=== PATIENT | female | born 1980 | race Caucasian/White ===

== ENCOUNTER 2024-10-31 08:44 | Outpatient (AMB) | payer OTHER, SELFPAY ==
--- NOTE | 2024-10-31 08:47 | A.OFFPC_ITS ---
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 Specialist Required: No Is last menstrual period known: Yes Last menstrual period: 10/16/24 Post menopausal: No Patient : No Allergies No Known Allergies Allergy (Verified 10/31/24 09:05) Medication List - Last Reconciled 10/31/24 by Jacek Bonilla CNP levocetirizine 5 mg PO DAILY Tobacco use date assessed: 10/31/24 Dental Screening Dental Screen Date: 10/31/24 Did you have a dental visit in the last 12 months?: Yes Did you have a dental problem in the last 6 months where you did not have access to dental care?: No Was dental information given to patient?: Patient has dentist HPI HPI Comments History of Present Illness Details 44-year-old female presents to establish care. Prior PCP? - Dr. Odilon Ruiz, [facility] Last office visit/CPE/labs - 10/2023 Acute issue(s) - Environmental allergies: She is on lev ocetirizine 5 mg daily and gets allergy injection from her seed and fertilizer specialist every 3 weeks. - Seasonal depression in the winter. She feels unmotivated to do things. - Anxiety. She has intermittent anxiety about certain things and situations. - She notes that anxiety and depressive symptoms have not disrupt her functionality. She has never been diagnosed with anxiety or depression and never been on psychotropic medication or had psychotherapy. She is not interested in psychotherapy or pharmacotherapy at this time. Past Medical History - Environmental allergies Surgical History - Cholecystectomy Family History - Dad: Diabetes, hypertension, hyperlip idemia - Mom: Diabetes, hypertension, hyperlip idemia, thyroid cancer, thyroid disorder Social History - Nonsmoker. Does not vape. Does not dri nk alcohol. Denies recreational drug use - Has been making healthy dietary choice s, including low salt. Exercises routinely. Generally sleep well Health maintenance - Last eye exam was in 04/2023 with Maria T handy. She will call and make an appointment for an eye exam. She will sign a consent for her PCP to obtain her ophthalmology record - Last dental visit was in 10/2023; william raged to schedule an appointment with his dentist for routine dental care - Last tetanus vaccine was more than 10 years ago; received Tdap vaccine today - Has not been vaccinated for the flu ; declines vaccination - Last pap smear test was about 3 years ago. Declines referral for pap smear test at this time - She has never had a mammogram. 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 1. Little interest or pleasure in doing things: several days 2. Feeling down, depressed, or hopeless: several days 3. Trouble falling or staying asleep, or sleeping too much: several days 4. Feeling tired or having little energy: several days 5. Poor appetite or overeating: several days 6. Feeling bad about yourself - or that you are a failure or have let yourself or your family down: more than half the days 7. Trouble concentrating on things, such as reading the newspaper or watching television: more than half the days 8. Moving or speaking so slowly that other people could have noticed. Or the opposite - being so fidgety or restless that you have been moving around a lot more than usual: not at all 9. Thoughts that you would be better off or of hurting yourself in some way: not at all Total score: 9 Depression Screening Interpretation: Positive Depression Screening Follow-up: Declines treatment Depression Screening Done: Yes [id number] - PHQ-9 Billing: Yes Source: Developed by Drs. Kwesi Zavala, Mikey Espinoza and colleagues, with an educational luna from [employer]. Thrive Questionnaire Date Thrive assessed: 10/31/24 I am a: Patient What is your living situation today?: I have a steady place to live Within the past 12 months, did the food you bought not last and you didn't have the money to get more?: Often true Within the past 12 months, did you worry whether your food would run out before you got money to buy more?: Sometimes True Do you have trouble paying for medicines?: No Do you have trouble getting transportation to medical appointments?: No Do you have trouble paying your heating and electricity bill?: No Do you have trouble taking care of your child, family member or friend?: No Do you have trouble with day-to-day activities such as bathing, preparing meals, shopping, managing finances, etc.?: No Are you currently unemployed and looking for a job?: No Are you interested in more education?: No Please select the resources that you would like help with: None Currently or been in a relationship where the following occur: No concerns reported THRIVE Score: 2 AUDIT C Alcohol Use Questionnaire (AUDIT-C) 1. How often do you have a drink containing alcohol?: Never 3. How often do you have six or more drinks on one occasion?: Never Total Score: 0 HEMA-7 AMB Questionnaire HEMA-7 Date HEMA - 7 assessed: 10/31/24 Feeling nervous, anxious, or on edge: 1 = Several days Not being able to stop or control worryin = Not at all Worrying too much about different things: 1 = Several days Trouble relaxin = Not at all Being so restless that it is hard to sit still: 0 = Not at all Becoming easily annoyed or irritable: 1 = Several days Feeling afraid as if something awful might happen: 1 = Several days Total HEMA-7 score (0-4 normal; 5-9 mild; 10-14 moderate; 15-21 severe): 4 Source: Developed by Drs. Kwesi Zavala, Meredith Celestin, Mikey Magallanes and colleagues, with an educational luna from [employer]. HEMA-7 Assessment Billing HEMA-7 Assessment Tool: HEMA-7 Assessment 22137 Review of Systems Const Details: Denies chills, Denies fatigue, Denies fever(s), Denies headache(s) and Denies weakness HEENT Denies change in vision, Denies dizziness, Denies headache(s), Denies hearing loss, Denies nasal congestion, Denies sinus pain, Denies sinus pressure and Denies sore throat Card Denies chest pain, Denies lightheadedness, Denies dyspnea and Denies other (palpitations) Resp Denies cough, Denies dyspnea and Denies wheezing GI Denies abdominal pain, Denies melena, Denies hematochezia, Denies change in bowel habits, Denies dyspepsia and Denies nausea Denies hematuria and Denies dysuria Musc Denies abnormal gait, Denies myalgias, Denies arthralgias, Denies numbness and Denies tingling Skin/Breast Denies rash, Denies unusual bruising and Denies wounds Neuro Denies abnormal gait, Denies dizziness, Denies headache(s), Denies memory loss, Denies numbness, Denies Sensory deficit (Neuro), Denies tingling and Denies weakness Psych Denies anxiety, Denies depression and Denies memory loss Endo Denies cold intolerance, Denies fatigue, Denies heat intolerance, Denies polydipsia and Denies polyuria Corey/Lymph Denies easy bleeding and Denies easy bruising Aller/Immun Denies wheezing Physical exam (Primary Care) Vital Signs: Last Vital Signs Temp 98.8 F 10/31/24 08:55 Pulse 100 10/31/24 09:14 Resp 16 10/31/24 08:55 BP 140/90 H 10/31/24 09:14 Pulse Ox 97 10/31/24 08:55 Oxygen Delivery Method Room Air 10/31/24 08:55 BMI result Body Mass Index 41.9 Tobacco/Smoking Status: Tobacco use Status Tobacco use date assessed 10/31/24 10/31/24 08:55 Patient Tobacco Use Status Never used Tobacco 10/31/24 08:55 e-Cigarette/Vaping Use Never Used 10/31/24 08:55 PHQ-9: PHQ-9 Score PHQ-9: Total score 9 10/31/24 09:52 Depression Screening Interpretation: Positive Depression Screening Follow-up: Declines treatment Thrive Assessment: Date of Thrive Assessment Date Thrive assessed 10/31/24 10/31/24 09:03 Currently or been in a relationship where the following occur: No concerns reported Const Other: General: no acute distress, well developed, alert and awake Nutritional Appearance: well nourished Orientation/consciousness: patient oriented x3 [facility] Head: Yes normocephalic and Yes atraumatic Ears: hearing grossly normal bilaterally and TM's normal bilaterally General nose exam: Normal external nose present and Normal nares present Mouth: Normal oral and palatal mucosa present and moist mucous membranes Teeth and gingiva: dentition normal Throat: Yes oropharynx normal Eyes Pupils: Equal, round and reactive pupils present and Pupil accommodation reflex normal EOM: EOMs intact bilaterally Neck Neck: Yes normal visual inspection, Yes no lymphadenopathy and Yes trachea midline Thyroid: Thyroid normal Carotids: no bruits Lymphatic: no lymphadenopathy noted Chest Chest palpation & inspection: normal inspection of the chest Resp Effort & Inspection: normal respiratory effort Auscultation: clear to auscultation bilaterally Cardio Rate: regular rate Rhythm: regular rhythm Heart sounds: S1 normal heart sound present, S2 normal heart sound present, no gallops, no murmurs and no rubs Bruits: no abdominal aortic bruits and no carotid bruits GI Palpation (GI): No Abdominal aortic bruit present, Soft to palpation, nontender, No hepatosplenomegaly present and No Rebound tenderness present Auscultation: normal bowel sounds General: Yes no CVA tenderness Back/Spine/Pelvis Back: no CVA tenderness Cervical Spine: cervical ROM normal and No Cervical spine tenderness Thoracic/Lumbar Spine: thoraco-lumbar ROM normal, No pain with thoraco-lumbar ROM, No thoracic spinal tenderness and No lumbar spinal tenderness Skin General: warm and dry. Normal skin color. Normal skin turgor Lesions: no lesions Rashes: no rashes Trauma: no lacerations or abrasions Wounds: no wounds Nails: normal Neuro General: patient oriented x3, gait normal and CN's II-XI intact bilaterally Cranial nerves: Yes Equal, round and reactive pupils present Cognition (Neuro): normal cognition Gait exam (Neuro): Normal gait present Motor exam (neuro): 5/5 motor strength present throughout Sensory Exam: No Sensory deficit (Neuro) Deep tendon reflexes (DTR's): Right patellar reflex intensity grade: 2+ and Left patellar reflex intensity grade: 2+ Extrem General: Yes normal to inspection, No edema and No calf tenderness Psych Appearance: grossly normal Affect: normal affect Attitude: cooperative Thought process: Normal thought process present Immunizations Boostrix Tdap 2.5 Lf unit-8 mcg-5 Lf/0.5 mL intramuscular syringe Performing Provider: Jacek Bonilla CNP Performing Location: [facility] Administered by: Vince Fuentes RN on 10/31/24 09:47 Dose Route Admin Location Dispensed Lot Number Expiration Date [facility] Education Counselor 0.5 mL IM Right Deltoid 0.5 mL [id number] 12/01/26 39074-841-76 [employer] VIS Given Date VIS Provided VIS Publication Date 10/31/24 Single Vaccine 21 Eligibility Eligibility Date Funding Source Not [facility] Eligible 10/31/24 Private Coding Level of Care Code New Pt Prev Care 40-64y(22783) Diagnoses Normal physical examination, routine Z00.00 Environmental allergies Z91.09 Seasonal depression F33.8 Anxiety F41.9 Breast cancer screening by mammogram Z12.31 Pap smear for cervical cancer screening Z12.4 Morbid obesity with BMI of 40.0-44.9, adult E66.01; Z68.41 Laboratory tests ordered as part of a complete physical exam (CPE) Z00.00 Additional Codes HEMA-7 Assessment Billing - HEMA-7 Assessment Tool: HEMA-7 Assessment 66439 ([id number]) PHQ-9 - 64620 - PHQ-9 Billing: Yes ([id number]) Assessment & Plan Assessment & Plan (1) Normal physical examination, routine: Code(s): Z00.00 - Encounter for general adult medical examination without abnormal findings Category: Medical Plan: No significant functional limitations noted. Advised to perform lab work and follow-up for labs review and elevated blood pressure in 2-3 weeks. Return sooner with symptoms or concerns. Verbalized understanding and agreed with treatment plan. (2) Environmental allergies: Code(s): Z91.09 - Other allergy status, other than to drugs and biological substances Category: Medical Plan: She is on levocetirizine 5 mg daily and gets allergy injection from her seed and fertilizer specialist every 3 weeks. Continue current treatment regimen. (3) Seasonal depression: Code(s): F33.8 - Other recurrent depressive disorders Category: Medical Plan: She experiences seasonal depression in the winter and feels unmotivated to do things. She also experiences intermittent anxiety about certain things and situ ations. Her anxiety and depressive symptoms have not disrupt her functionality. She has never been diagnosed with anxiety or depression and never been on psychotropic medication or had psychotherapy. She is not interested in psychotherapy or pharmacotherapy at this time. PHQ-9 score reveals mild depression. HEMA-7 score is normal. Healthy diet and routine exercise encouraged. Follow-up with worsening or new symptoms. Verbalized understanding and agreed with treatment plan. (4) Anxiety: Code(s): F41.9 - Anxiety disorder, unspecified Category: Medical Plan: Plan as above. (5) Breast cancer screening by mammogram: Code(s): Z12.31 - Encounter for screening mammogram for malignant neoplasm of breast Category: Medical Plan: She has never had a mammogram. Mammogram ordered. (6) Pap smear for cervical cancer screening: Code(s): Z12.4 - Encounter for screening for malignant neoplasm of cervix Category: Medical Plan: Last pap smear test was about 3 years ago. Declines referral for pap smear test at this time. Follow-up as needed. Verbalized understanding and agreed with the plan. (7) Morbid obesity with BMI of 40.0-44.9, adult: Code(s): E66.01 - Morbid (severe) obesity due to excess calories; Z68.41 - Body mass index [BMI] 40.0-44.9, adult Category: Medical Plan: She currently weighs 229 lb, BMI is 41.9. She has been making healthy dietary choices and exercising routinely, which I encouraged. Referred to weight management clinic as requested. Follow-up as needed. Verbalized understanding and agreed with treatment plan. (8) Laboratory tests ordered as part of a complete physical exam (CPE): Code(s): Z00.00 - Encounter for general adult medical examination without abnormal findings Category: Medical Plan: Fasting labs ordered as part of a complete physical exam. Advised to fast for at least 10 hours before getting labs drawn. May drink water Verbalized understanding and agreed with treatment plan. Orders: Orders TDaP Immunization Today Z23 - Encounter for immunization Complete Blood Count Auto Diff Today Z00.00 - Encounter for general adult medical examination without abnormal findings Comprehensive [place]. Panel Fast Today Z00.00 - Encounter for general adult medical examination without abnormal findings Lipid Panel Today Z00.00 - Encounter for general adult medical examination without abnormal findings Microalbumin, Random (w Creat) Today Z00.00 - Encounter for general adult medical examination without abnormal findings UA CC w/rflx Micro + Cult Today Z00.00 - Encounter for general adult medical examination without abnormal findings TSH reflex Free T4 Today Z00.00 - Encounter for general adult medical examination without abnormal findings Vitamin D 25-OH Total Today Z00.00 - Encounter for general adult medical examination without abnormal findings MM screening mammo BI Today Z12.31 - Encounter for screening mammogram for malignant neoplasm of breast Referrals Medical Weight Management Referral E66.01 - Morbid (severe) obesity due to excess calories, Z68.41 - Body mass index [BMI] 40.0-44.9, adult
[2024-10-31 08:55] VITALS: BP 141/84; PULSE 96; RESP 16; TEMP 37.1; O2SAT 97; BMI 41.9
[2024-10-31 09:14] VITALS: BP 140/90; PULSE 100
== END 2024-10-31 09:57 | disposition home or self-care (01) ==
LOC: HO.HMCFM 08:44
PROVIDERS: PCP Nurse Practitioner Family; Visit Provider Nurse Practitioner Family
DX: Z00.00 Encounter for general adult medical examination without abnormal findings (principal); F33.8 Other recurrent depressive disorders; E66.01 Morbid (severe) obesity due to excess calories; Z68.41 Body mass index [BMI] 40.0-44.9, adult; Z91.09 Other allergy status, other than to drugs and biological substances; F41.9 Anxiety disorder, unspecified; Z12.31 Encounter for screening mammogram for malignant neoplasm of breast; Z23 Encounter for immunization

== ENCOUNTER 2024-10-31 09:47 | Outpatient (REF) | payer OTHER, SELFPAY ==
[2024-10-31 11:23] LABS: MANUAL DIFF FLAG NO
[2024-10-31 11:32] LABS: Basophils Absolute Auto 0.1 X10*3/uL (0.0-0.2); Basophils Percent Auto 0.6 % (0-2); Eosinophils Absolute Auto 0.2 X10*3/uL (0.0-0.4); Eosinophils Percent Auto 1.7 % (0-4); Hematocrit 40.1 % (37.0-47.0); Hemoglobin 13.1 g/dl (12.0-16.0); Imm Gran Abs Auto 0.03 X10*3/uL (0.00-0.03); Imm Gran Pct Auto 0.3 % (0.0-0.4); Lymphocytes Percent Auto 44.9 % (20-40); Mean Corpuscular HGB Conc 32.7 g/dl (31.0-35.0); Mean Corpuscular Hemoglobin 29.2 pg (27.0-33.0); Mean Corpuscular Volume 89.5 fL (80.0-98.0); Mean Platelet Volume 9.3 fL (9.4-12.3); Monocytes Absolute Auto 0.5 X10*3/uL (0.1-1.2); Monocytes Percent Auto 5.5 % (2-11); Neutrophils Absolute Auto 4.2 x10*3/uL (2.0-8.3); Platelet Count 448 X10*3/uL (160-400); Red Blood Count 4.48 X10*6/uL (4.20-5.50); Red Cell Distribution Width 13.5 % (11.0-16.0); White Blood Count 8.9 X10*3/uL (4.8-10.8)
[2024-10-31 11:40] LABS: Appearance Urine Clear; Color Urine Yellow; Glucose Urine UA Negative (Negative); Leukocyte Esterase Urine Negative (Negative); Nitrite Urine Negative (Negative); PH 5.5 (5.0-9.0); Specific Gravity - Urine >= 1.030 (1.005-1.025); UMIC TRIGGER UACC YES; Urine Blood Trace (Negative); Urine Ketones Trace mg/dL (Negative); Urine Protein Trace mg/dL (Neg-Trace)
[2024-10-31 11:45] LABS: Bacteria Urine None Seen (None Seen); Hyaline Casts Urine 0-2 /LPF (0-2); WBC Urine 0-5 /HPF (0-5)
[2024-10-31 12:02] LABS: Alanine Aminotransferase 38 U/L (0-31); Alkaline Phosphatase 90 U/L (39-117); Anion Gap 10 (12-20); Aspartate Amino Transferase 34 U/L (5-31); Bilirubin Total 0.3 mg/dL (0.0-1.0); Blood Urea Nitrogen 9 mg/dL (9-16); Calcium 8.9 mg/dL (8.4-10.2); Carbon Dioxide 24 mmol/L (22-29); Chloride 110 mmol/L (96-108); Cholesterol 237 mg/dL (<200); Estimated Glomerular Filt Rate > 60; Glucose Fasting 120 mg/dL (60-99); HDL Cholesterol 67 mg/dL (>40); LDL Cholesterol Calculated 144 mg/dL (<100); Potassium 3.9 mmol/L (3.3-5.1); Sodium 140 mmol/L (135-145); Total Protein 7.5 g/dL (6.5-8.0); Triglycerides 132 mg/dL (<150)
[2024-10-31 12:06] LABS: TSH reflex Free T4 1.67 uIU/mL (0.32-4.0); Vitamin D 25-OH Total 81.5 ng/mL (>30)
[2024-10-31 12:10] LABS: Microalbum/Creatinine Ratio Ur 12.5 ug/mg cr (<30)
== END 2024-10-31 09:48 | disposition home or self-care (01) ==
LOC: HO.WFDLDS 09:47
PROVIDERS: Visit Provider Nurse Practitioner Family
DX: Z00.00 Encounter for general adult medical examination without abnormal findings (principal); Z23 Encounter for immunization; F33.8 Other recurrent depressive disorders; F41.9 Anxiety disorder, unspecified; E66.01 Morbid (severe) obesity due to excess calories; Z68.41 Body mass index [BMI] 40.0-44.9, adult; Z79.899 Other long term (current) drug therapy; Z91.09 Other allergy status, other than to drugs and biological substances
CPT/HCPCS: 36415; 80053; 80061; 81001; 82043; 82306; 82570; 84443; 85025; 90471; 90715; 96127; 99386

== ENCOUNTER 2024-11-26 11:48 | Outpatient (AMB) | payer OTHER, SELFPAY ==
--- NOTE | 2024-11-26 11:53 | A.OFFPC_ITS ---
Vital Signs 11/26/24 11:56 Height 5 ft 2 in Weight 229 lb 8 oz BMI 42.0 BP 130/88 Blood Pressure Location Rt brachial Position Sitting Respiration 16 Pulse 113 H Pulse Source Pulse Oximeter Temp 98.7 F Temp Source Oral Pulse Oximetry (%) 98 Oxygen Delivery Method Room Air Intake Visit Reasons: 2-3 wks labs elevated BP and labs review Intake Note: patient here for 2-3 wks follow up on BP and lab review Medication Manager Required: No Is last menstrual period known: Yes Last menstrual period: 11/14/24 Post menopausal: No Patient : No Allergies No Known Allergies Allergy (Verified 11/26/24 12:20) Medication List - Last Reconciled 11/26/24 by Jacek Bonilla CNP levocetirizine 5 mg PO DAILY Tobacco use date assessed: 11/26/24 Dental Screening Dental Screen Date: 11/26/24 Did you have a dental visit in the last 12 months?: Yes Did you have a dental problem in the last 6 months where you did not have access to dental care?: No Was dental information given to patient?: Patient has dentist HPI HPI Comments History of Present Illness Details 44-year-old female presents for elevated BP without diagnosis of hypertension and review of recent lab results follow-up. She notes that she recently started making healthy dietary choices. She is active but does not exercise. She offers no complaints and denies acute symptoms at this time. 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 1. Little interest or pleasure in doing things: several days 2. Feeling down, depressed, or hopeless: not at all 3. Trouble falling or staying asleep, or sleeping too much: not at all 4. Feeling tired or having little energy: several days 5. Poor appetite or overeating: several days 6. Feeling bad about yourself - or that you are a failure or have let yourself or your family down: several days 7. Trouble concentrating on things, such as reading the newspaper or watching television: several days 8. Moving or speaking so slowly that other people could have noticed. Or the opposite - being so fidgety or restless that you have been moving around a lot more than usual: several days 9. Thoughts that you would be better off or of hurting yourself in some way: not at all Total score: 6 Depression Screening Interpretation: Positive Depression Screening Follow-up: Existing condition Depression Screening Done: Yes Source: Developed by Drs. Kwesi Zavala, Meredith Celestin, Mikey Magallanes and colleagues, with an educational luna from [employer]. Thrive Questionnaire Date Thrive assessed: 10/31/24 I am a: Patient What is your living situation today?: I have a steady place to live Within the past 12 months, did the food you bought not last and you didn't have the money to get more?: I choose not to answer this question Within the past 12 months, did you worry whether your food would run out before you got money to buy more?: I choose not to answer this question Do you have trouble paying for medicines?: I choose not to answer this question Do you have trouble getting transportation to medical appointments?: I choose not to answer this question Do you have trouble paying your heating and electricity bill?: I choose not to answer this question Do you have trouble taking care of your child, family member or friend?: I choose not to answer this question Do you have trouble with day-to-day activities such as bathing, preparing meals, shopping, managing finances, etc.?: I choose not to answer this question Are you currently unemployed and looking for a job?: I choose not to answer this question Are you interested in more education?: I choose not to answer this question Please select the resources that you would like help with: None Currently or been in a relationship where the following occur: I choose not to answer THRIVE Score: 0 AUDIT C Alcohol Use Questionnaire (AUDIT-C) 1. How often do you have a drink containing alcohol?: Never Total Score: 0 HEMA-7 AMB Questionnaire HEMA-7 Date HEMA - 7 assessed: 10/31/24 Feeling nervous, anxious, or on edge: 0 = Not at all Not being able to stop or control worryin = Not at all Worrying too much about different things: 0 = Not at all Trouble relaxin = Not at all Being so restless that it is hard to sit still: 0 = Not at all Becoming easily annoyed or irritable: 0 = Not at all Feeling afraid as if something awful might happen: 0 = Not at all Total HEMA-7 score (0-4 normal; 5-9 mild; 10-14 moderate; 15-21 severe): 0 Source: Developed by Drs. Kwesi Zavala, Meredith Celestin, Mikey Magallanes and colleagues, with an educational luna from [employer]. Review of Systems Const Details: Const Denies chills, Denies fatigue, Denies fever(s), Denies headache(s) and Denies weakness ENT Denies dizziness and Denies headache(s) Card Denies chest pain, Denies lightheadedness, Denies dyspnea and Denies other (Palpitations) Resp Denies cough, Denies dyspnea, Denies wheezing and Denies other ( shortness of breath) GI Denies abdominal pain, Denies melena, Denies hematochezia, Denies change in bowel habits, Denies dyspepsia and Denies nausea Denies hematuria and Denies dysuria Musc Denies abnormal gait, Denies myalgias, Denies arthralgias, Denies numbness and Denies tingling Skin/Breast Denies rash, Denies unusual bruising and Denies wounds Neuro Denies abnormal gait, Denies dizziness, Denies headache(s), Denies memory loss, Denies numbness, Denies Sensory deficit (Neuro), Denies tingling and Denies weakness Psych Denies anxiety, Denies depression, Denies memory loss Endo Denies cold intolerance, Denies fatigue, Denies heat intolerance, Denies polydipsia and Denies polyuria Aller/Immun Denies wheezing Physical exam (Primary Care) Vital Signs: Last Vital Signs Temp 98.7 F 11/26/24 11:56 Pulse 113 H 11/26/24 11:56 Resp 16 11/26/24 11:56 BP 130/88 11/26/24 11:56 Pulse Ox 98 11/26/24 11:56 Oxygen Delivery Method Room Air 11/26/24 11:56 BMI result Body Mass Index 42.0 Tobacco/Smoking Status: Tobacco use Status Tobacco use date assessed 11/26/24 11/26/24 11:59 Patient Tobacco Use Status Never used Tobacco 11/26/24 11:54 e-Cigarette/Vaping Use Never Used 11/26/24 11:54 PHQ-9: PHQ-9 Score PHQ-9: Total score 6 11/26/24 13:00 Depression Screening Interpretation: Positive Depression Screening Follow-up: Existing condition Thrive Assessment: Date of Thrive Assessment Date Thrive assessed 10/31/24 11/26/24 11:54 Currently or been in a relationship where the following occur: I choose not to answer Const Other: General: no acute distress and well developed Nutritional Appearance: well nourished Orientation/consciousness: patient oriented x3 HENMT Head: Yes normocephalic and Yes atraumatic Eyes General: appearance normal, both eyes and all related structures Pupils: Equal, round and reactive pupils present EOM: EOMs intact bilaterally Resp Effort & Inspection: normal respiratory effort Auscultation: clear to auscultation bilaterally Cardio Rate: regular rate Rhythm: regular rhythm Heart sounds: S1 normal heart sound present, S2 normal heart sound present, no gallops, no murmurs and no rubs GI Palpation (GI): No Abdominal aortic bruit present, Soft to palpation, nontender, No hepatosplenomegaly present and No Rebound tenderness present Auscultation: normal bowel sounds General: Yes no CVA tenderness Back/Spine/Pelvis Back: no CVA tenderness Cervical Spine: cervical ROM normal and No Cervical spine tenderness Thoracic/Lumbar Spine: thoraco-lumbar ROM normal, No pain with thoraco-lumbar ROM, No thoracic spinal tenderness and No lumbar spinal tenderness Extrem General: Yes normal to inspection, No edema and No calf tenderness Skin General: warm and dry. Normal skin color. Normal skin turgor Neuro General: patient oriented x3, gait normal and no focal neuro deficit Cranial nerves: Yes Equal, round and reactive pupils present Cognition (Neuro): normal cognition Gait exam (Neuro): Normal gait present Sensory Exam: No Sensory deficit (Neuro) Psych Appearance: grossly normal Affect: normal affect Attitude: cooperative Thought process: Normal thought process present Results AMB Hemoglobin A1c AMB Hemoglobin A1c 5.9 % Last Edit by Debora Cantor MA on 11/26/24 13:00 Results Reviewed Results Reviewed: Laboratory Last Values Hgb A1c (Clinic) 5.9 % (4.0-6.0) 11/26/24 12:31 Coding Level of Care Code Est Pt Level 4 (33368) Diagnoses Hypercholesterolemia E78.00 Transaminitis R74.01 Thrombocytosis D75.839 Prediabetes R73.03 Assessment & Plan Assessment & Plan (1) Hypercholesterolemia: Code(s): E78.00 - Pure hypercholesterolemia, unspecified Category: Medical Plan: Recent total cholesterol and LDL levels are elevated, 237 and 144 respectively. She reports history of elevated total cholesterol and LDL in the past 3 years despite making healthy dietary choices and exercising. Advised to limit foods high in saturated fat and avoid foods high in trans fat. Routine exercise encouraged. Fast for 10-12 hours, may drink water, and perform lipid panel blood work before next visit. Follow-up for telehealth visit in two months. Return sooner with symptoms or concerns. Verbalized understanding and agreed with the plan. (2) Transaminitis: Code(s): R74.01 - Elevation of levels of liver transaminase levels Category: Medical Plan: Recent AST and ALT levels are slightly elevated, 34 and 38 respectively. Fatty liver deposit is likely. Routine exercise and healthy diet, including low-fat encouraged. Will recheck liver panel in 2 months. Verbalized understanding and agreed with the plan. (3) Thrombocytosis: Code(s): D75.839 - Thrombocytosis, unspecified Category: Medical Plan: Recent platelet level is slightly elevated, 448. Will recheck platelet levels and make changes as needed. Verbalized understanding and agreed with the plan. (4) Prediabetes: Code(s): R73.03 - Prediabetes Category: Medical Plan: Recent fasting glucose is elevated, 120. A1c today is 5.9%. Routine exercise and healthy diet, including low carbs encouraged. Will recheck A1c in 6 months. Verbalized understanding and agreed with the plan. Orders: Orders Lipid Panel 2 Months E78.00 - Pure hypercholesterolemia, unspecified AMB Hemoglobin A1c Today Z13.9 - Encounter for screening, unspecified Liver Panel 2 Months R74.01 - Elevation of levels of liver transaminase levels Platelet Count Today D75.839 - Thrombocytosis, unspecified
[2024-11-26 11:56] VITALS: BP 130/88; PULSE 113; RESP 16; TEMP 37.1; O2SAT 98; BMI 42.0
== END 2024-11-26 15:02 | disposition home or self-care (01) ==
PROVIDERS: PCP Nurse Practitioner Family; Visit Provider Nurse Practitioner Family
DX: E78.00 Pure hypercholesterolemia, unspecified (principal); R74.01 Elevation of levels of liver transaminase levels; D75.839 Thrombocytosis, unspecified; R73.03 Prediabetes; Z13.9 Encounter for screening, unspecified

== ENCOUNTER → 2024-11-26 11:48 | Outpatient (BNVA) | payer OTHER, SELFPAY | PROVIDERS: PCP Nurse Practitioner Family; Visit Provider Nurse Practitioner Family | DX: E78.00 Pure hypercholesterolemia, unspecified (principal); R74.01 Elevation of levels of liver transaminase levels; D75.839 Thrombocytosis, unspecified; R73.03 Prediabetes | CPT/HCPCS: 83036; 99212 ==

== ENCOUNTER 2025-01-02 08:06 | Outpatient (REF) | payer OTHER, SELFPAY | END 2025-01-02 08:07 | disposition home or self-care (01) | LOC: HO.MAMMO 08:06 | PROVIDERS: PCP Nurse Practitioner Family; Visit Provider Nurse Practitioner Family | DX: Z12.31 Encounter for screening mammogram for malignant neoplasm of breast (principal) | CPT/HCPCS: 77063; 77067 ==

== ENCOUNTER → 2025-01-02 08:15 | Outpatient (BNV) | payer OTHER, SELFPAY | PROVIDERS: PCP Nurse Practitioner Family; Visit Provider Internal Medicine | DX: Z12.31 Encounter for screening mammogram for malignant neoplasm of breast (principal) | CPT/HCPCS: 77063; 77067 ==

== ENCOUNTER 2025-02-18 09:50 | Outpatient (REF) | payer OTHER, SELFPAY ==
[2025-02-18 10:53] LABS: Platelet Count 419 X10*3/uL (160-400)
[2025-02-18 13:21] LABS: Alanine Aminotransferase 41 U/L (0-31); Albumin Level 4.1 g/dL (3.5-5.0); Alkaline Phosphatase 81 U/L (39-117); Aspartate Amino Transferase 37 U/L (5-31); Cholesterol 232 mg/dL (<200); HDL Cholesterol 56 mg/dL (>40); Total Protein 6.6 g/dL (6.5-8.0); Triglycerides 123 mg/dL (<150)
== END 2025-02-18 09:51 | disposition home or self-care (01) ==
LOC: HO.HMGCLDS 09:50
PROVIDERS: PCP Nurse Practitioner Family; Visit Provider Nurse Practitioner Family
DX: E78.00 Pure hypercholesterolemia, unspecified (principal); R74.01 Elevation of levels of liver transaminase levels; D75.839 Thrombocytosis, unspecified
CPT/HCPCS: 36415; 80061; 80076; 85049

== ENCOUNTER 2025-02-25 11:39 | Outpatient (AMB) | payer OTHER, SELFPAY ==
--- NOTE | 2025-02-25 11:42 | A.OFFPC_ITS ---
Vital Signs 02/25/25 11:47 Height 5 ft 2 in Weight 232 lb BMI 42.4 BP 137/81 Blood Pressure Location Lt brachial Position Sitting Respiration 16 Pulse 99 Pulse Source Pulse Oximeter Temp 98.3 F Temp Source Oral Pulse Oximetry (%) 99 Oxygen Delivery Method Room Air Intake Visit Reasons: hypercholesterolemia,transaminitis,thrombocytosis Intake Note: patient here for follow up on hypercholesterolemia, transaminitis, thrombocytosis Card Cutter Helper Required: No Is last menstrual period known: Yes Last menstrual period: 02/15/25 Post menopausal: No Patient : No Allergies No Known Allergies Allergy (Verified 02/25/25 12:14) Medication List - Last Reconciled 02/25/25 by aJcek Bonilla CNP levocetirizine 5 mg PO DAILY Tobacco use date assessed: 02/25/25 Dental Screening Dental Screen Date: 02/25/25 Did you have a dental visit in the last 12 months?: Yes Did you have a dental problem in the last 6 months where you did not have access to dental care?: No Was dental information given to patient?: Patient has dentist HPI HPI Comments History of Present Illness Details 44-year-old female presents for hypercho lesterolemia, transaminitis, and thrombocytopenia follow-up. She admits to making healthy dietary choices and exercising routinely. She has not been contacted by [facility] weight management clinic. She reports facial itchiness, redness, and swelling for the past 3 days. She used a new facial product the day prior to her s/s which have not improved. PO Xyzal and TONG Benadryl and hydrocortisone have not been effective. She request prednisone. She notes that her mother has h/o HLD. 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 Current occupational exposures/hazards: No Cognitive needs: No Hearing needs: No Vision needs: No Female Reproductive History Menstrual Date of last menstrual period: 02/15/25 Questionnaire Thrive Questionnaire Date Thrive assessed: 11/26/24 I am a: Patient What is your living situation today?: I have a steady place to live Within the past 12 months, did the food you bought not last and you didn't have the money to get more?: I choose not to answer this question Within the past 12 months, did you worry whether your food would run out before you got money to buy more?: I choose not to answer this question Do you have trouble paying for medicines?: I choose not to answer this question Do you have trouble getting transportation to medical appointments?: I choose not to answer this question Do you have trouble paying your heating and electricity bill?: I choose not to answer this question Do you have trouble taking care of your child, family member or friend?: I choose not to answer this question Do you have trouble with day-to-day activities such as bathing, preparing meals, shopping, managing finances, etc.?: I choose not to answer this question Are you currently unemployed and looking for a job?: I choose not to answer this question Are you interested in more education?: I choose not to answer this question Please select the resources that you would like help with: None Currently or been in a relationship where the following occur: I choose not to answer THRIVE Score: 0 HEMA-7 AMB Questionnaire HEMA-7 Date HEMA - 7 assessed: 10/31/24 Source: Developed by Drs. Kwesi Zavala, Meredith Celestin, Mikey Magallanes and colleagues, with an educational luna from [employer]. Review of Systems Const Details: Const Denies chills, Denies fatigue, Denies fever(s), Denies headache(s) and Denies weakness ENT Denies dizziness and Denies headache(s) Card Denies chest pain, Denies lightheadedness, Denies dyspnea and Denies other (Palpitations) Resp Denies cough, Denies dyspnea, Denies wheezing and Denies other ( shortness of breath) GI Denies abdominal pain, Denies melena, Denies hematochezia, Denies change in bowel habits, Denies dyspepsia and Denies nausea Denies hematuria and Denies dysuria Musc Denies abnormal gait, Denies myalgias, Denies arthralgias, Denies numbness and Denies tingling Skin/Breast Reports as per HPI Neuro Denies abnormal gait, Denies dizziness, Denies headache(s), Denies memory loss, Denies numbness, Denies Sensory deficit (Neuro), Denies tingling and Denies weakness Psych Denies anxiety, Denies depression, Denies memory loss Endo Denies cold intolerance, Denies fatigue, Denies heat intolerance, Denies polydipsia and Denies polyuria Aller/Immun Denies wheezing Physical exam (Primary Care) Vital Signs: Last Vital Signs Temp 98.3 F 02/25/25 11:47 Pulse 99 02/25/25 11:47 Resp 16 02/25/25 11:47 BP 137/81 02/25/25 11:47 Pulse Ox 99 02/25/25 11:47 Oxygen Delivery Method Room Air 02/25/25 11:47 BMI result Body Mass Index 42.4 Tobacco/Smoking Status: Tobacco use Status Tobacco use date assessed 02/25/25 02/25/25 11:50 Patient Tobacco Use Status Never used Tobacco 02/25/25 11:45 e-Cigarette/Vaping Use Never Used 02/25/25 11:45 Thrive Assessment: Date of Thrive Assessment Date Thrive assessed 11/26/24 02/25/25 11:45 Currently or been in a relationship where the following occur: I choose not to answer Const Other: General: no acute distress and well developed Nutritional Appearance: well nourished Orientation/consciousness: patient oriented x3 HENMT Head: Yes normocephalic and Yes atraumatic Eyes General: appearance normal, both eyes and all related structures Pupils: Equal, round and reactive pupils present EOM: EOMs intact bilaterally Resp Effort & Inspection: normal respiratory effort Auscultation: clear to auscultation bilaterally Cardio Rate: regular rate Rhythm: regular rhythm Heart sounds: S1 normal heart sound present, S2 normal heart sound present, no gallops, no murmurs and no rubs GI Palpation (GI): No Abdominal aortic bruit present, Soft to palpation, nontender, No hepatosplenomegaly present and No Rebound tenderness present Auscultation: normal bowel sounds General: Yes no CVA tenderness Back/Spine/Pelvis Back: no CVA tenderness Cervical Spine: cervical ROM normal and No Cervical spine tenderness Thoracic/Lumbar Spine: thoraco-lumbar ROM normal, No pain with thoraco-lumbar ROM, No thoracic spinal tenderness and No lumbar spinal tenderness Extrem General: Yes normal to inspection, No edema and No calf tenderness Skin General: warm and dry. Normal skin color. Normal skin turgor Moderate erythema and edema noted both cheeks Neuro General: patient oriented x3, gait normal and no focal neuro deficit Cranial nerves: Yes Equal, round and reactive pupils present Cognition (Neuro): normal cognition Gait exam (Neuro): Normal gait present Sensory Exam: No Sensory deficit (Neuro) Psych Appearance: grossly normal Affect: normal affect Attitude: cooperative Thought process: Normal thought process present Coding Level of Care Code Est Pt Level 4 (76795) Complex EM visit Add On G2211 Diagnoses Hypercholesterolemia E78.00 Transaminitis R74.01 Thrombocytosis D75.839 Allergic dermatitis L23.9 Assessment & Plan Assessment & Plan (1) Hypercholesterolemia: Code(s): E78.00 - Pure hypercholesterolemia, unspecified Category: Medical Plan: Recent total cholesterol and LDL levels are elevated, 232 and 152 respectively; previous levels were 237 and 144 respectively. Triglycerides and HDL levels are normal. Her mother has history of hyperlipidemia. May be hereditary or diet related. Declines medication treatment at this time and notes she will continue to make lifestyle changes. Advised to limit foods high in saturated fat and avoid foods high trans fat. Routine exercise encouraged. [facility] weight management clinic phone number given to patient; encouraged to contact them to schedule an appointment. Perform lipid panel blood work 2-3 days before next visit. Follow-up for telehealth visit in 2 months. Return sooner with symptoms or concerns. Verbalized understanding and agreed with the plan. (2) Transaminitis: Code(s): R74.01 - Elevation of levels of liver transaminase levels Category: Medical Plan: Recent AST and ALT levels are slightly elevated, 37 and 41 respectively; previous levels were 34 and 38 respectively. Likely fatty liver disease due to diet and obesity. No acute symptoms at this time. Weight management encouraged. Will monitor liver panel periodically or if presents with related symptoms or concerns. Verbalized understanding and agreed with the plan. (3) Thrombocytosis: Code(s): D75.839 - Thrombocytosis, unspecified Category: Medical Plan: Recent platelet level is slightly elevated, 419; previous level was 448. Equivocal. Referred to Hematology/oncologist for further workup. (4) Allergic dermatitis: Code(s): L23.9 - Allergic contact dermatitis, unspecified cause Category: Medical Plan: She reports facial itchiness, redness, and swelling for the past 3 days. She used a new facial product the day prior to her s/s which have not improved. PO Xyzal and TONG Benadryl and hydrocortisone have not been effective. She request prednisone. Moderate erythema and edema noted both cheeks. Prednisone 20 mg daily x5 days ordered; advised to take as prescribed; instructed on the risks, benefits, and potential adverse reactions of the medication. Encouraged to use skin products cautiously. Follow-up with worsening or new signs and symptoms. Verbalized understanding and agreed with the plan. Orders: Orders Lipid Panel 2 Months E78.00 - Pure hypercholesterolemia, unspecified Referrals Hematology & Oncology Referral D75.839 - Thrombocytosis, unspecified Medications: New prednisone 20 mg PO DAILY 5 tabs 0RF 5 days
[2025-02-25 11:47] VITALS: BP 137/81; PULSE 99; RESP 16; TEMP 36.8; O2SAT 99; BMI 42.4
== END 2025-02-25 12:31 | disposition home or self-care (01) ==
PROVIDERS: PCP Nurse Practitioner Family; Visit Provider Nurse Practitioner Family
DX: E78.00 Pure hypercholesterolemia, unspecified (principal); R74.01 Elevation of levels of liver transaminase levels; D75.839 Thrombocytosis, unspecified; L23.9 Allergic contact dermatitis, unspecified cause

== ENCOUNTER → 2025-02-25 11:39 | Outpatient (BNVA) | payer OTHER, SELFPAY | PROVIDERS: PCP Nurse Practitioner Family; Visit Provider Nurse Practitioner Family | DX: E78.00 Pure hypercholesterolemia, unspecified (principal); R74.01 Elevation of levels of liver transaminase levels; D75.839 Thrombocytosis, unspecified; L23.9 Allergic contact dermatitis, unspecified cause | CPT/HCPCS: 99212 ==

== ENCOUNTER 2025-03-11 08:28 | Outpatient (REF) | payer OTHER, SELFPAY ==
--- NOTE | ~2025-03-11 | MM_ITS ---
EXAMINATIONS: 1. MM DIAGNOSTIC DIGITAL BREAST TOMOSYNTHESIS, BILATERAL 2. Targeted ultrasound of left breast CLINICAL INFORMATION: Callback from screening for bilateral breast findings: Right: Asymmetry in the lateral breast middle depth on the CC view Left: Focal asymmetry in the upper outer quadrant COMPARISON: Screening mammogram on January 02, 2025. TECHNIQUE: Digital breast tomosynthesis is performed in full field ML 90 degrees along with computer-aided detection (CAD). Synthesized 2D images are generated from the tomosynthesis. Spot compression tomosynthesis images were obtained. FINDINGS: BREAST COMPOSITION: There are scattered areas of fibroglandular density (ACR BI-RADS breast composition Category b). RIGHT BREAST: Previously seen asymmetry in the lateral breast middle depth does not persist on today's images and most likely represented overlapping fibroglandular breast tissue. LEFT BREAST: An approximately 2.3 cm mass persists on today's images in the lateral breast at approximately 3 o'clock position at 4.1-6.5 cm from the nipple (ML 90 degrees , spot CC ). Targeted ultrasound of the left breast was performed at the location of the mammographic finding. The survey shows a 2.0 x 1.8 x 1.2 cm solid mass at 3 o'clock position 6 cm from the nipple. No definite internal vascularity is demonstrated with color Doppler evaluation. This correlates with the mammographic finding. MM/MM tomosynthesis added view BI IMPRESSION: RIGHT BREAST: Negative, no evidence of malignancy. Normal interval follow-up mammogram is recommended in 12 months. LEFT BREAST: 2.0 cm solid mass at 3 o'clock position 6 cm from the nipple. Suspicious findings. Ultrasound guided needle core biopsy is recommended. ASSESSMENT: BI-RADS 4 - Suspicious finding RECOMMENDATION: Biopsy recommended Results were discussed with the patient at time of visit. This patient's information was entered into a reminder system with a target due date for their next mammogram. Electronically signed by: Valentina Agrawal MD 03/11/2025 09:23 AM EDT
--- OUTSIDE RECORDS SUMMARY | 2025-03-11 08:44 | XMS_ITS | Clinical Summary ---
Author Organization [facility] Address [address] [place] [id number] Phone Care Team Providers Care Automatic Teller Machine Servicer Name Role Phone Pcp, Unknown Primary Care Provider Unavailabl e Social History Tobacco Use Types Packs/Day Years Used Date Smoking Tobacco: Never Assessed Education Answer Date Recorded Are you interested in more education? Not on annmarei e 03/07/2025 Are you concerned about learning? Not on file 03/07/2025 No 03/07/2025 No 03/07/2025 Digital Access Answer Date Recorded No 03/07/2025 No 03/07/2025 Reliable internet access at home? Not on file 03/07/2025 Device with a working camera? Not on file Comments Unknown Sex and Gender Information Value Date Recorded Sex Assigned at Not on file Legal Sex Female 2:16 PM EDT Gender Identity Not on file Sexual Orientation Not on file Plan of Treatment Upcoming Encounters Date Type Department Care Team (Late st Contact Info) Description 04/24/2025 8:00 AM EDT Office Visit [facility] [address] [place] [address] [place] [id number] Ken Garces MD [address] [facility], [address] [place] [address] Health Maintenance Due Date Last Done Comments Adult Td,Tdap Booster 1979 LIPID PANEL 1979 DEPRESSION SCREENING 1991 SMOKING Hx and SMOKELESS TOB ACCO SCREENING 1992 HEPATITIS C SCREENING 1997 HIV ONE-TIME SCREENING (18-6 5 YEARS) 1997 PAP SMEAR 2000 MAMMOGRAM 2019 COVID-19 VACCINE (1 - 2024-2 5 season) 2024 COLOGUARD 2024 COLONOSCOPY 2024 COLORECTAL CANCER SCREENING 2024 FIT TEST 2024 FOBT 2024 SIGMOIDOSCOPY 2024 VIRTUAL COLONOSCOPY 2024 HEPATITIS A VACCINES Aged Out No long er eligible based on patient's age to complete this topic HIB VACCINES Aged Out No longer eligi ble based on patient's age to complete this topic MENINGOCOCCAL VACCINES (ACWY) Aged Out No longer eligible based on patient's age to complete this topic MENINGOCOCCAL VACCINES (B) Aged Out N o longer eligible based on patient's age to complete this topic PNEUMOCOCCAL VACCINES (0-49 years) Aged Out No longer eligible based on patient's age to complete this topic Medical Devices Not on file Insurance [place]CO [place] [address] [place] [address] ACO [facility] [place] [address] Care Teams Automatic Teller Machine Servicer Relationship Specialty Start Date End Date Pcp, Unknown PCP - General 03/07/25 Additional Source Comments The information contained in this document represents components of the legal health record. It is not the complete legal health record.[facility]
== END 2025-03-11 08:29 | disposition home or self-care (01) ==
LOC: HO.MAMMO 08:28
PROVIDERS: PCP Nurse Practitioner Family; Visit Provider Nurse Practitioner Family
DX: N64.89 Other specified disorders of breast (principal)
CPT/HCPCS: 76642; 77062; 77066

== ENCOUNTER → 2025-03-11 08:30 | Outpatient (BNV) | payer OTHER, SELFPAY | PROVIDERS: PCP Nurse Practitioner Family; Visit Provider Radiology Body Imaging | DX: N63.23 Unspecified lump in the left breast, lower outer quadrant (principal); R92.323 Mammographic fibroglandular density, bilateral breasts | CPT/HCPCS: 76642; 77062; 77066 ==

== ENCOUNTER 2025-04-10 08:21 | Outpatient (AMB) | payer OTHER, SELFPAY ==
--- NOTE | 2025-04-10 08:29 | MHC.OFFVIS ---
Vital Signs 04/10/25 08:36 Height 5 ft 2 in Weight 225 lb BMI 41.1 BP 135/82 Blood Pressure Location Rt brachial Position Sitting Pulse 91 Intake Visit Reasons: L brst 3'oclock mass Intake Note: Patient seen in office today for US biopsy CONSULT 2.0 cm solid mass at 3 o'clock position 6 cm from the nipple. Patient c/o: does not feel lump or bumps. Denies redness, rash, nipple discharge. No personal or family hx of breast CA. Biopsy: 04-10-25 @ 9am. Invoice Control Clerk Required: No Accompanied by: Self / Same As Patient Allergies No Known Allergies Allergy (Verified 04/10/25 08:37) HPI HPI L brst 3'oclock mass: Details: 44 year female referred for a left breast mass. She had undergone a screening mammogram last Dec, 2024 and was noted to have a left breast mass. She was brought in for a diagnostic mammogram and ultrasound last month and this showed a 2 cm mass at the left breast at the 3 o'clock position. She was recommended to undergo an ultrasound-guided biopsy She otherwise denies any palpable mass Her menarche was at the age of 13. She had 2 pregnancies. Her 1st was the age of 14. She still has her periods. She denies any family history of breast cancer. 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 Current occupational exposures/hazards: No Cognitive needs: No Hearing needs: No Vision needs: No Review of Systems Const Denies chills and Denies fever(s) Card Denies chest pain, Denies dyspnea and Denies dyspnea on exertion Resp Denies cough, Denies dyspnea and Denies dyspnea on exertion GI Denies hematochezia and Denies change in bowel habits Denies hematuria Musc Denies back pain and Denies limited range of motion Neuro Denies focal weakness and Denies convulsions Psych Denies depression and Denies mood swings Physical Exam Const General: comfortable and no acute distress Nutritional Appearance: obese Orientation/consciousness: patient oriented x3 Neck Neck: Yes no lymphadenopathy Chest Other: Large pendulous breasts, no palpable breast masses, no axillary lymphadenopathy, no nipple or skin changes Resp Auscultation: clear to auscultation bilaterally Cardio Rhythm: regular rhythm GI Palpation (GI): Soft to palpation, nontender and no guarding Neuro General: patient oriented x3 Assessment & Plan Assessment & Plan (1) Left breast mass: Code(s): N63.20 - Unspecified lump in the left breast, unspecified quadrant Category: Medical Plan: She has this left breast mass at the 3 o'clock position as described above. An ultrasound-guided biopsy was recommended by the radiologist. I explained to her the technique of this procedure I will see her in the office next week to discuss the path report. She is scheduled to have the biopsy done today. Orders: Orders US breast ndl core biopsy LT 04/09/25 N63.20 - Unspecified lump in the left breast, unspecified quadrant Coding Level of Care Code New Pt Level 3 (74688) Diagnoses Left breast mass N63.20
[2025-04-10 08:36] VITALS: BP 135/82; PULSE 91; BMI 41.1
--- OUTSIDE RECORDS SUMMARY | 2025-04-10 08:41 | XMS_ITS | Clinical Summary ---
Author Organization [facility] Address [address] [facility] [address] [place] [id number] Phone Care Team Providers Care Electronic Security Specialist Name Role Phone Pcp, Unknown Primary Care Provider Unavailabl e Social History Tobacco Use Types Packs/Day Years Used Date Smoking Tobacco: Never Assessed Education Answer Date Recorded Are you interested in more education? Not on annmarie e 03/07/2025 Are you concerned about learning? [...] Office Visit [facility] [address] [place] [address] [place] [phone] Ken Garces MD [address] [facility], [address] [place] [address] Health Maintenance Due Date Last Done Comments [...] on file Insurance ACO ACO A[employer] [place] [address] [address] ACO [facility] Care Teams Electronic Security Specialist Relationship Specialty Start Date End Date Pcp, Unknown PCP - General 03/07/25 Additional Source Comments The information contained in this document represents components of the legal health record. It is not the complete legal health record.[facility]
== END 2025-04-10 08:45 | disposition home or self-care (01) ==
LOC: HO.HGS 08:22
PROVIDERS: PCP Nurse Practitioner Family; Visit Provider Surgery
DX: N63.20 Unspecified lump in the left breast, unspecified quadrant (principal)
CPT/HCPCS: 99203

== ENCOUNTER 2025-04-10 08:49 | Outpatient (REF) | payer OTHER, SELFPAY ==
--- NOTE | ~2025-04-10 | MM_ITS ---
PROCEDURE: ULTRASOUND-GUIDED LEFT BREAST BIOPSY CLINICAL INFORMATION: Left breast hypoechoic mass 3:00 6 cm from the nipple here for ultrasound guided core needle biopsy. COMPARISON: Priors on PACS. TECHNIQUE: The details of the procedure, as well as the risks, benefits, and alternatives to the procedure were explained to the patient in detail and all of her questions were answered, after which, written informed consent was obtained. PROCEDURE: Prior to the procedure, sonography revealed solid mass in the left breast at 3:00 6 cm from the nipple. A time-out was performed, the lesion intended for biopsy was targeted and the skin of the left breast was then prepped and draped in the usual sterile fashion. Using sonographic guidance, sterile technique, and 1% lidocaine without epinephrine for local anesthesia, a total of 5 cores were obtained through the targeted area with a 14-gauge biopsy device. At the completion of tissue sampling, a single open coil metallic clip was deposited at the biopsy site. An appropriate sample was obtained. The postprocedure 2-view direct digital mammogram reveals satisfactory positioning of the biopsy clip. The patient tolerated the procedure well and, after assuring adequate hemostasis, was discharged in good condition after reviewing postbiopsy breast care instructions. Final pathology results are pending. MM/MM tomosynthesis diagnostic LT IMPRESSION: 1. Uncomplicated sonographically-guided core biopsy of the left breast. The 2-view direct digital postprocedure mammogram reveals satisfactory positioning of the biopsy clip. 2. Final pathology results are pending. A separate report with final recommendations will be issued once these results are made available. Electronically signed by: Aby Thakkar DO 04/10/2025 10:41 AM EDT
[2025-04-10] MEDS: Lidocaine HCl 1 % 20 ML VIAL 9 ML SUBCUT (09:44)
== END 2025-04-10 08:50 | disposition home or self-care (01) ==
LOC: HO.MAMMO 08:49
PROVIDERS: PCP Nurse Practitioner Family; Visit Provider Surgery
DX: N63.21 Unspecified lump in the left breast, upper outer quadrant (principal)
CPT/HCPCS: 19083; 77061; 77065; 88305; 99202; A4648; J2003

== ENCOUNTER → 2025-04-10 09:00 | Outpatient (BNV) | payer OTHER, SELFPAY | PROVIDERS: PCP Nurse Practitioner Family; Visit Provider Internal Medicine | DX: N63.25 Unspecified lump in the left breast, overlapping quadrants (principal) | CPT/HCPCS: 19083; 77065 ==

== ENCOUNTER → 2025-04-11 14:10 | Outpatient (BNV) | payer OTHER, SELFPAY | PROVIDERS: PCP Nurse Practitioner Family; Visit Provider Internal Medicine | DX: D75.839 Thrombocytosis, unspecified (principal) | CPT/HCPCS: 99204 ==

== ENCOUNTER 2025-04-17 11:12 | Outpatient (AMB) | payer OTHER, SELFPAY ==
--- NOTE | 2025-04-17 11:14 | MHC.OFFVIS ---
Vital Signs 04/17/25 11:18 Height 5 ft 2 in Weight 224 lb BMI 41.0 BP 120/89 Blood Pressure Location Rt brachial Position Sitting Pulse 106 H Intake Visit Reasons: s/p L brst 3'oclock mass Intake Note: Patient here s/p left breast bx 3o'clock mass on 04-10-2025. Patient c/o: no concerns. Reports breast bx site healing well. Duck Operator Required: No Accompanied by: Self / Same As Patient Allergies Seasonal Allergies Allergy (Verified 04/17/25 11:19) Itching Medication List - Last Reconciled 04/17/25 by Marvin Kennedy MD No Known Home Meds HPI HPI s/p L brst 3'oclock mass: Details: She is here for follow-up after having a left breast ultrasound biopsy of a breast mass last 04/10/2025. She says she tolerated procedure well and denies any significant complaints. 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 Current occupational exposures/hazards: No Cognitive needs: No Hearing needs: No Vision needs: No Review of Systems Const Denies chills and Denies fever(s) Card Denies chest pain Resp Denies cough GI Denies abdominal pain Physical Exam Vital Signs: Last Vital Signs Pulse 106 H 04/17/25 11:18 BP 120/89 04/17/25 11:18 BMI result Body Mass Index 41.0 Const General: comfortable and no acute distress Chest Other: Left breast biopsy site well healed, not infected, no hematoma Resp Effort & Inspection: normal respiratory effort Assessment & Plan Assessment & Plan (1) Fibroadenoma of breast: Code(s): D24.9 - Benign neoplasm of unspecified breast Category: Medical Plan: Status post ultrasound biopsy. The path report shows a fibroadenoma. I explained to her the benign nature of this pathology. I did tell her that once in a while, this become much bigger and she is welcome to follow up in the office if she wants this re-evaluated. She is comfortable with the plan. She was also advised to continue with a regular screening mammograms Coding Level of Care Code Est Pt Level 3 (29891) Diagnoses Fibroadenoma of breast D24.9
[2025-04-17 11:18] VITALS: BP 120/89; PULSE 106; BMI 41.0
--- OUTSIDE RECORDS SUMMARY | 2025-04-17 13:45 | XMS_ITS | Clinical Summary ---
Author Organization [facility] Address [address] [facility] [address] [place] [address] Phone Care Team Providers Care Candle Maker Name Role Phone Pcp, Unknown Primary Care [...] Office Visit [facility] [address] [place] [address] [place] [address] Ken Garces MD [address] [facility], [address] [place] [address] Health Maintenance Due Date Last Done Comments [...] on file Insurance ACO ACO [place] [address] [place] [address] ACO [facility] ACO Care Teams Candle Maker Relationship Specialty Start Date End Date Pcp, Unknown PCP - General 03/07/25 Additional Source Comments The information contained in this document represents components of the legal health record. It is not the complete legal health record.[facility]
== END 2025-04-17 11:22 | disposition home or self-care (01) ==
LOC: HO.HGS 11:13
PROVIDERS: PCP Nurse Practitioner Family; Visit Provider Surgery
DX: D24.9 Benign neoplasm of unspecified breast (principal)
CPT/HCPCS: 99213

== ENCOUNTER → 2025-04-17 11:12 | Outpatient (BNVA) | payer OTHER, SELFPAY | PROVIDERS: PCP Nurse Practitioner Family; Visit Provider Surgery | DX: D24.9 Benign neoplasm of unspecified breast (principal) | CPT/HCPCS: 99212 ==

== ENCOUNTER 2025-04-24 09:51 | Outpatient (REF) | payer OTHER, SELFPAY ==
--- OUTSIDE RECORDS SUMMARY | 2025-04-24 08:00 | XMS_ITS | Encounter Summary ---
Author Organization [facility] Address [address] [facility] [address] [place] [address] Phone Care Team Providers Care Meat Stock Clerk Name Role Phone Jacek Bonilla WHISTLE PUNK Primary Care Provider +1- [phone] Reason for Visit * Reason Comments New Patient Annual Exam Last pap 3-5 years. Planning one today Encounter Details Date Type Department Care Team (Latest Contact Info) Description 04/24/2025 8:00 AM EDT Office Visit [facility] [address] [place] [address] [place] [address] Ken Garces MD [address] [place] [address], [facility] [address] [place] [address] [email or web address] Encounter for annual routine gynecological examination (Primary [...] biopsy in March. This was done at [facility]. She notes that her periods are [...] Primary 44-year-old female with overall normal annual CLINICAL TEAM MANAGER examination. Routine health maintenance was reviewed. Breast cancer screening by mammogram BSE reviewed and she is up-to-date on her mammogram. I have asked her to sign a record release for [facility] to obtain her previous mammogram results [...] Name Type Priority Associated Diagnoses Date /Time TSH with reflex Lab Routine Thinning hair 04/24/2025 8:42 AM EDT Scheduled Orders Name Type Priority Associated Diagnoses Orde r Schedule Pap Test Pathology and Cytology Routine Screening for cervical cancer Ordered: 04/24/2025 TSH with reflex Lab Routine Thinning hair Expected: 04/24/2025, Expires: 04/24/2026 documented as of this encounter Visit Diagnoses Diagnosis Encounter for annual routine gynecological examination- Primary Breast cancer screening by mammogram Screening for cervical cancer Screening for malignant neoplasm of the cervix Thinning hair Unspecified alopecia documented in this encounter Care Teams Meat Stock Clerk Relationship Specialty Start Date End Date Jacek Bonilla NP [address] [place] [address] PCP - General Nurse Practitioner 04/24/25 documented as of this encounter Additional Source Comments The information contained in this document represents components of the legal health record. It is not the complete legal health record.[facility]
--- OUTSIDE RECORDS SUMMARY | 2025-04-24 08:40 | XMS_ITS | Encounter Summary ---
Author Organization [facility] Address [address] [facility] [address] [place] [address] Phone Care Team Providers Care Cable Assembler Name Role Phone Jacek Bonilla PIERCER OPERATOR Primary Care Provider +1- [phone] Encounter Details Date Type Department Care Team (Late st Contact Info) Description 04/24/2025 8:40 AM EDT Hospital Encounter [facility] [address] [place] [address] Ken Garces MD [address] [facility], [address] [place] [address] Social History Tobacco Use Types Packs/Day Years [...] on file documented as of this encounter Plan of Treatment Pending Results Name Type Priority Associated Diagnoses Date /Time TSH with reflex Lab Routine Thinning hair 04/24/2025 8:42 AM EDT Scheduled Orders Name Type Priority Associated Diagnoses Orde r Schedule TSH with reflex Lab Routine Thinning hair As Needed for 1 Occurrences starting 04/24/2025 until 04/24/2025 documented as of this encounter Visit Diagnoses Diagnosis Thinning hair Unspecified alopecia documented in this encounter Care Teams Cable Assembler Relationship Specialty Start Date End Date Jacek Bonilla NP [address] [place] [address] PCP - General Nurse Practitioner 04/24/25 documented as of this encounter Additional Source Comments The information contained in this document represents components of the legal health record. It is not the complete legal health record.[facility]
--- OUTSIDE RECORDS SUMMARY | 2025-04-24 11:52 | XMS_ITS | Clinical Summary ---
Author Organization [facility] Address [address] [facility] [address] [place], [place] [id number] Phone Care Team Providers Care Aquarium Tank Attendant Name Role Phone Jacek Bonilla BANQUET SET UP PERSON Primary Care Provider +1- [phone] Allergies No known active allergies Medications metroNIDAZOLE (METROCREAM) 0.75 % cream APPLY A THIN LAYER TO THE FACE ONCE TO TWICE DAILY NEEDED. 03/13/2025 Active triamcinolone acetonide 0.1 % cream APPLY TWICE DAILY TO ECZEMA UP TO 2 WEEKS/MONTH NEEDED. 03/27/2025 Active levocetirizine (XYZAL) 5 MG tablet Take 5 mg by mouth every evening. Active Active Problems No known active problems Encounters Date Type Department Care Team Description 04/24/2025 8:40 AM EDT Hospital Encounter [facility] [address] [place] [address] [place] [address] Ken Garces MD 04/24/2025 8:00 AM EDT Office Visit [facility] [address] [place] [address] [place] [address] Ken Garces MD Encounter for annual routine gynecological examination (Primary Dx); Breast cancer screening by mammogram; Screening for cervical cancer; Thinning hair from Last 3 Months Family History Medical History Relation Comments Diabetes Father Diabetes Mother Osteoarthritis Mother Stroke Mother Thyroid cancer Mother Diabetes Sister 1 Diabetes Sister 2 Diabetes Sister 3 Relation Status Comments Father Mother Alive Sister 1 Alive Sister 2 Alive Sister 3 Alive Social History Tobacco Use Types Packs/Day Years [...] on file Sexual Orientation Not on file Last Filed Vital Signs Vital Sign Reading Time Taken Comments Blood Pressure - - Pulse - - Temperature - - Respiratory Rate - - Oxygen Saturation - - Inhaled Oxygen Concentration - - Weight 102.1 kg (225 lb) 04/24/2025 7:51 AM EDT Height 157.5 cm (5' 2 ) 04/24/2025 7:51 AM EDT Body Mass Index 41.15 04/24/2025 7:51 AM EDT Plan of Treatment Health Maintenance Due Date Last Done Comments LIPID PANEL 1979 DEPRESSION SCREENING 1991 HEPATITIS C SCREENING 1997 HIV ONE-TIME SCREENING (18-65 YEARS) 1997 PAP SMEAR 2000 SCREENING FOR DIABETES 2014 MAMMOGRAM 2019 COLOGUARD 2024 COLONOSCOPY 2024 COLORECTAL CANCER SCREENING 2024 FIT TEST 2024 FOBT 2024 SIGMOIDOSCOPY 2024 VIRTUAL COLONOSCOPY 2024 INFLUENZA VACCINE (#1) 2025 , 04/06/2022, 08/13/2021, Additional history exists COVID-19 VACCINE ( season) 2025 05/13/2023, 05/13/2023, 08/13/2021, Additional history exists Adult Td,Tdap Booster 10/31/2034 10/31/2024 SMOKING STATUS SCREENING (Once After 26 Yrs) Completed 04/24/2025 HEPATITIS A VACCINES Aged Out No long [...] on file Insurance ACO ACO ACO ACO ACO ACO Care Teams Aquarium Tank Attendant Relationship Specialty Start Date End Date Jacek Bonilla NP [address] [place] [address] PCP - General Nurse Practitioner 04/24/25 Additional Source Comments The information contained in this document represents components of the legal health record. It is not the complete legal health record.[facility]
[2025-04-24 14:08] LABS: Cholesterol 231 mg/dL (<200); HDL Cholesterol 53 mg/dL (>40); Triglycerides 153 mg/dL (<150)
== END 2025-04-24 09:52 | disposition home or self-care (01) ==
LOC: HO.HMGCLDS 09:51
PROVIDERS: PCP Nurse Practitioner Family; Visit Provider Nurse Practitioner Family
DX: E78.00 Pure hypercholesterolemia, unspecified (principal)
CPT/HCPCS: 36415; 80061

== ENCOUNTER 2025-04-29 10:56 | Outpatient (AMB) | payer OTHER, SELFPAY ==
--- OUTSIDE RECORDS SUMMARY | 2025-04-24 08:00 | XMS_ITS | Encounter Summary ---
Author Organization [facility] Address [address] [facility] [address] [place] [address] Phone Care Team Providers Care Home Care Liaison Name Role Phone Jacek Bonilla PHOTO OFFSET PRINTER Primary Care Provider [phone] Reason for Visit * Reason Comments New Patient Annual Exam Last pap 3-5 years. Planning one today Encounter Details Date Type Department Care Team (Latest Contact Info) Description 04/24/2025 8:00 AM EDT Office Visit [facility] [address] [place] [address] [place] [address] Ken Garces MD [address] [place] [address], [facility] [address] [place] [address] [email or web address] Encounter for annual routine gynecological examination (Primary Dx); Breast cancer screening by mammogram; Screening for cervical cancer; Thinning hair Social History Tobacco Use Types Packs/Day Years Used Date Smoking Tobacco: Never Smokeless Tobacco: Never Tobacco Cessation:Counseling Given: No Alcohol Use Standard Drinks/Week Comments Never 0 (1 standard drink = 0.6 oz pur e alcohol) Education Answer Date Recorded Are you interested in more education? Not on annmarie e 03/07/2025 Are you concerned about learning? Not on file 03/07/2025 No 03/07/2025 No 03/07/2025 Digital Access Answer Date Recorded No 03/07/2025 No 03/07/2025 Reliable internet access at home? Not on file 03/07/2025 Device with a working camera? Not on file Comments No Sex and Gender Information Value Date Recorded Sex Assigned at Not on file Legal Sex Female 2:16 PM EDT Gender Identity Not on file Sexual Orientation Not on file documented as of this encounter Last Filed Vital Signs Vital Sign Reading Time Taken Comments Blood Pressure - - Pulse - - Temperature - - Respiratory Rate - - Oxygen Saturation - - Inhaled Oxygen Concentration - - Weight 102.1 kg (225 lb) 04/24/2025 7:51 AM EDT Height 157.5 cm (5' 2 ) 04/24/2025 7:51 AM EDT Body Mass Index 41.15 04/24/2025 7:51 AM EDT documented in this encounter Progress Notes * Ken Garces MD - 04/24/2025 8:00 AM EDT Office note: Annual Exam Encounter Date: 04/24/2025 HPI: Paula Hogue is a 44 y.o. who presents for routine annual exam. Patient's last menstrualperiod was 03/25/2025 (approximate). She is a new patient to our practice. She does report that shehas a history of abnormal Paps but her last Pap was approximately 3 to 5 years ago and was normal. She had a mammogram in December of this year with a subsequent normal breast biopsy in March. This was done at [facility]. She notes that her periods are fairly regular in timing, duration andflow with no intermenstrual bleeding. She is sexually active but is not using any form of contraception. She wants to know if she is in perimenopause. She notes that she has had some thinning of the hair,fatigue and changes in her skin becoming more dry. She also notes some blurry vision when she is looking at computer screens. She has also noted some weight gain as well. Review of Systems - General ROS: negative Psychological ROS: negative Ophthalmic ROS: negative ENT ROS: negative Allergy and Immunology ROS: negative Hematological and Lymphatic ROS: negative Endocrine ROS: negative Breast ROS: negative for breast lumps Respiratory ROS: no cough, shortness of breath, or wheezing Cardiovascular ROS: no chest pain or dyspnea on exertion Gastrointestinal ROS: no abdominal pain, change in bowel habits, or black or bloody stools Genito-Urinary ROS: no dysuria, trouble voiding, or hematuria Musculoskeletal ROS: negative Neurological ROS: negative Dermatological ROS: negative Health Maintenance and Preventative Care: Immunization History Administered Date(s) Administered COVID-19 (Pre-06/06) Moderna Vaccine, mRNA, PF 08/13/2021 COVID-19 (Pre-06/06) Pfizer Vaccine, mRNA, PF 12/16/2020, 01/06/2021 COVID-19 Moderna Spikevax Vaccine 12+ 05/13/2023 Obstetric and Gynecologic History OB History Para Term AB Living 2 2 2 0 0 2 SAB IAB Ectopic Multiple Live Births 0 0 0 0 2 # Outcome Date GA Lbr Nader/2nd Weight Sex Type Anes PTL Lv 2 Term F Vag-Spont ROMULO 1 Term F Vag-Spont ROMULO Menstrual History Patient's last menstrual period was 03/25/2025 (approximate). Past Histories: There is no problem list on file for this patient. Past Medical History: Diagnosis Date Abnormal mammography Bx done 2024 Abnormal Pap smear of cervix Rosacea face Past Surgical History: Procedure Laterality Date BREAST EXCISIONAL BIOPSY Left 2024 Family History Problem Relation Age of Onset Thyroid cancer Mother Diabetes Mother Osteoarthritis Mother Stroke Mother Diabetes Father Diabetes Sister Diabetes Sister Diabetes Sister Social History Socioeconomic History Marital status: /Civil Union Spouse name: Not on file Number of children: Not on file Years of education: Not on file Highest education level: Not on file Occupational History Not on file Tobacco Use Smoking status: Never Smokeless tobacco: Never Vaping Use Vaping status: never used Substance and Sexual Activity Alcohol use: Never Drug use: Never Sexual activity: Yes Partners: Male control/protection: None Other Topics Concern Not on file Social History Narrative Not on file No Known Allergies Current Outpatient Medications: levocetirizine (XYZAL) 5 MG tablet, Take 5 mg by mouth every evening., Disp: , Rfl: , Last Dispense: Unknown (patient-reported) metroNIDAZOLE (METROCREAM) 0.75 % cream, APPLY A THIN LAYER TO THE FACE ONCE TO TWICE DAILY NEEDED., Disp: , Rfl: , Last Dispense: Unknown (patient-reported) triamcinolone acetonide 0.1 % cream, APPLY TWICE DAILY TO ECZEMA UP TO 2 WEEKS/MONTH NEEDED., Disp: , Rfl: , Last Dispense: Unknown (patient-reported) Physical exam: Height 157.5 cm (5' 2 ), weight 102.1 kg (225 lb), last menstrual period 03/25/2025. Gen: Alert, cooperative. Well-appearing on today's exam HEENT: head normocephalic without obvious deformity. Normal dentition. Neck: Trachea midline. No palpable cervical lymphadenopathy noted. Thyroid normal to inspection andpalpation. Cardiovascular: regular rate and rhythm, no m/r/g Lung: clear to auscultation bilaterally, no wheezing, rhonchi, normal respiratory effort Breast: Normal appearance, no masses or tenderness, no nipple retraction or dimpling bilaterally. No axillary or supraclavicular lymphadenopathy. Abdomen: Soft,non-tender. No masses palpable, no organomegaly. No notable scarring. Extremities: no calf tenderness, discoloration or edema, atraumatic without deformity Skin: Skin color, texture, turgor normal. No rashes or lesions Psych: Mood and affect appropriate. Pelvic: External Genitalia: Normal architecture, without lesions. No inguinal lymphadenopathy. Vagina: Mucosa is pink with normal rugae. No abnormal discharge or lesions. Cervix: Normal appearance, without discharge or lesions. No cervical motion tenderness. Pap smear was obtained. Uterus: Normal size and shape. Anteverted position. Non-tender. Mobile Adnexa: No adnexal masses or tenderness bilaterally. Perianal area without lesions Assessment/Plan: 44 y.o. Problem List Items Addressed This Visit None Visit Diagnoses Encounter for annual routine gynecological examination - Primary 44-year-old female with overall normal annual TECHNOLOGY SERVICES MANAGER examination. Routine health maintenance was reviewed. Breast cancer screening by mammogram BSE reviewed and she is up-to-date on her mammogram. I have asked her to sign a record release for [facility] to obtain her previous mammogram results and results of the breast biopsy. Screening for cervical cancer If any component of the Pap is abnormal, she will need a colposcopy. Relevant Orders Pap Test Thinning hair I explained that many of the symptoms that she is describing could certainly be secondary to becoming perimenopausal. Of note, she does not have significant hot flashes or night sweats. I explained that some of the physical changes associated with perimenopause can present in the manner which she is describing but thyroid disorders also need to be ruled out as well. I explained if her thyroid level is normal, I will treat each individual symptom rather than considering MHT and she really does not have much in the way of other significant perimenopausal symptoms such as hot flashes and night sweats. Relevant Orders TSH with reflex Ken Garces MD documented in this encounter Plan of Treatment Pending Results Name Type Priority Associated Diagnoses Date /Time Pap Test Pathology and Cytology Routine 12:00 AM EDT Scheduled Orders Name Type Priority Associated Diagnoses Orde r Schedule Pap Test Pathology and Cytology Routine Screening for cervical cancer Ordered: 04/24/2025 documented as of this encounter Results * TSH with reflex (04/24/2025 8:42 AM EDT) TSH 2.10 0.27 - 4.20 uIU/mL [facility] Blood 04/24/2025 8:42 AM EDT 04/24/2025 8:46 AM EDT us Ken Garces MD LAB BLOOD ORDERABLES Final Re sult [facility] [address] [place] [address] documented in this encounter Visit Diagnoses Diagnosis Encounter for annual routine gynecological examination- Primary Breast cancer screening by mammogram Screening for cervical cancer Screening for malignant neoplasm of the cervix Thinning hair Unspecified alopecia documented in this encounter Care Teams Home Care Liaison Relationship Specialty Start Date End Date Jacek Bonilla NP [address] [place] [address] PCP - General Nurse Practitioner 04/24/25 documented as of this encounter Additional Source Comments The information contained in this document represents components of the legal health record. It is not the complete legal health record.[facility]
--- OUTSIDE RECORDS SUMMARY | 2025-04-24 08:40 | XMS_ITS | Encounter Summary ---
Author Organization [facility] Address [address] [facility] [address] [place] [address] Phone Care Team Providers Care Technical Account Representative Name Role Phone Jacek Bonilla MANAGEMENT RECRUITER Primary Care Provider [phone]- [phone] Encounter Details Date Type Department Care Team (Latest Contact Info) Description 04/24/2025 8:40 AM EDT - 04/24/2025 11:59 PM EDT Hospital Encounter [facility] [address] [place] [address] [place] [address] Ken Garces MD [address] [place] [address], [address] [place] [address] [email or web address] Discharge Disposition: Home or Self Care Social History Tobacco Use Types Packs/Day Years Used Date Smoking Tobacco: Never Smokeless Tobacco: Never Alcohol Use Standard Drinks/Week Comments Never 0 [...] on file documented as of this encounter Medications at Time of Discharge levocetirizine (XYZAL) 5 MG tablet Take 5 mg by mouth every evening. metroNIDAZOLE (METROCREAM) 0.75 % cream APPLY A THIN LAYER TO THE FACE ONCE TO TWICE DAILY NEEDED. 03/13/2025 triamcinolone acetonide 0.1 % cream APPLY TWICE DAILY TO ECZEMA UP TO 2 WEEKS/MONTH NEEDED. 03/27/2025 documented as of this encounter Plan of Treatment Not on file documented as of this encounter Procedures Procedure Name Priority Date/Time Associated Diagnosis Comments TSH WITH REFLEX Routine 04/24/2025 8:42 AM EDT Thinning hair documented in this encounter Results * TSH with reflex (04/24/2025 8:42 AM EDT) TSH 2.10 0.27 - 4.20 uIU/mL [facility] Blood 04/24/2025 8:42 AM EDT 04/24/2025 8:46 AM EDT us Ken Garces MD LAB BLOOD ORDERABLES Final Re sult [facility] [address] [place] [address] documented in this encounter Visit Diagnoses Diagnosis Thinning hair Unspecified alopecia documented in this encounter Care Teams Technical Account Representative Relationship Specialty Start Date End Date Jacek Bonilla NP [address] [place] [address] PCP - General Nurse Practitioner 04/24/25 documented as of this encounter Additional Source Comments The information contained in this document represents components of the legal health record. It is not the complete legal health record.[facility]
--- NOTE | 2025-04-29 10:38 | MHC.PC.OV ---
Intake Visit Reasons: 2 months f/u labs Intake Note: patient here for 2 month Telehealth follow up for labs Rib Bender Required: No Is last menstrual period known: Yes Last menstrual period: 03/25/25 Post menopausal: No Patient : No Allergies Seasonal Allergies Allergy (Verified 04/29/25 10:52) Itching Tobacco use date assessed: 04/29/25 Dental Screening Dental Screen Date: 04/29/25 Did you have a dental visit in the last 12 months?: Yes Did you have a dental problem in the last 6 months where you did not have access to dental care?: No Was dental information given to patient?: Patient has dentist HPI HPI Comments History of Present Illness Details 44-year-old female presents for a telehealth visit for elevated cholesterol. She notes that she has been making healthy lifestyle changes. She finds it challenging to lose weight. She is waiting to receive a call from [facility] weight management clinic for an appointment with them. She requests referral to [facility] substation operator transforming/dietitian. She offers no complaints and denies acute symptoms at this time. [facility] Medical History (Updated 04/29/25 @ 11:01 by Jacek Bonilla CNP) Fibroadenoma of breast Morbid obesity Left breast mass Surgical History H/O tubal ligation History of cholecystectomy Family History Mother High blood pressure High cholesterol Diabetes Thyroid disorder Thyroid cancer Father High blood pressure High cholesterol Diabetes Social History Household Members: Spouse Housing: House Patient Tobacco Use Status: Never used Tobacco e-Cigarette/Vaping Use: Never Used Second Hand Smoke Exposure: No Patient : No service: No Current occupational status: employed 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 Current occupational exposures/hazards: No Cognitive needs: No Hearing needs: No Vision needs: No Female Reproductive History Menstrual Date of last menstrual period: 03/25/25 Questionnaire Thrive Questionnaire Date Thrive assessed: 11/26/24 I am a: Patient What is your living situation today?: I have a steady place to live Within the past 12 months, did the food you bought not last and you didn't have the money to get more?: I choose not to answer this question Within the past 12 months, did you worry whether your food would run out before you got money to buy more?: I choose not to answer this question Do you have trouble paying for medicines?: I choose not to answer this question Do you have trouble getting transportation to medical appointments?: I choose not to answer this question Do you have trouble paying your heating and electricity bill?: I choose not to answer this question Do you have trouble taking care of your child, family member or friend?: I choose not to answer this question Do you have trouble with day-to-day activities such as bathing, preparing meals, shopping, managing finances, etc.?: I choose not to answer this question Are you currently unemployed and looking for a job?: I choose not to answer this question Are you interested in more education?: I choose not to answer this question Please select the resources that you would like help with: None Currently or been in a relationship where the following occur: I choose not to answer THRIVE Score: 0 AUDIT C Alcohol Use Questionnaire (AUDIT-C) 3. How often do you have six or more drinks on one occasion?: Never Total Score: 0 HEMA-7 AMB Questionnaire HEMA-7 Date HEMA - 7 assessed: 10/31/24 Source: Developed by Drs. Kwesi Zavala, Meredith Celestin, Mikey Magallanes and colleagues, with an educational luna from [employer]. Review of Systems Const Details: Denies chills, Denies fatigue, Denies fever(s), Denies headache(s) and Denies weakness Cardiac Denies chest pain, Denies claudication, Denies leg edema, Denies lightheadedness, Denies palpitations, Denies dyspnea, Denies dyspnea on exertion, Denies orthopnea and Denies other (Loss of consciousness) Resp Denies cough, Denies excessive phlegm production, Denies dyspnea, Denies dyspnea on exertion, Denies snoring and Denies wheezing Physical exam (Primary Care) Tobacco/Smoking Status: Tobacco use Status Tobacco use date assessed 04/29/25 04/29/25 10:56 Patient Tobacco Use Status Never used Tobacco 04/29/25 10:39 e-Cigarette/Vaping Use Never Used 04/29/25 10:39 Thrive Assessment: Date of Thrive Assessment Date Thrive assessed 11/26/24 04/29/25 10:39 Currently or been in a relationship where the following occur: I choose not to answer Const Other: Patient is alert and oriented x3 Telehealth Telehealth Telehealth Platform: Telephone Location of provider rendering services: practice address Location of patient: address on file Patient Identification confirmed using: Name, : Yes Telehealth method: voice only Patient verbally consented to treatment: Yes Patient verbally consented to billing insurance company: Yes Patient informed of any privacy concerns related to visit: Yes Coding Level of Care Code Tele Est Pt Level 3 (47882) Diagnoses Hyperlipidemia E78.5 Morbid obesity with BMI of 40.0-44.9, adult E66.01; Z68.41 Time Spent (min) 15 Assessment & Plan Assessment & Plan (1) Hyperlipidemia: Code(s): E78.5 - Hyperlipidemia, unspecified Category: Medical Plan: Recent triglycerides, total cholesterol, and LDL levels are elevated, 153, 231, and 148 respectively, HDL level is normal. Atorvastatin 20 mg daily at bedtime ordered; advised to take as prescribed. Instructed on the risks, benefits, and potential adverse reactions of the medication. Advised to limit foods high in saturated fat and avoid foods high in trans fat. Routine exercise/weight management encouraged. Fast for 10-12 hours, may drink water, and perform lipid panel blood work a few days before next visit. Follow-up for a telehealth visit in 2 months. Return sooner with symptoms or concerns. Verbalized understanding and agreed with the plan. (2) Morbid obesity with BMI of 40.0-44.9, adult: Code(s): E66.01 - Morbid (severe) obesity due to excess calories; Z68.41 - Body mass index [BMI] 40.0-44.9, adult Category: Medical Plan: She notes that she has been making healthy lifestyle changes. She finds it challenging to lose weight. She is waiting to receive a call from [facility] weight management clinic for an appointment with them. She requests referral to [facility] substation operator transforming/dietitian; referral made. Orders: Orders Lipid Panel 6 Weeks E78.5 - Hyperlipidemia, unspecified Referrals Nutrition/Dietitian Referral E66.01 - Morbid (severe) obesity due to excess calories, Z68.41 - Body mass index [BMI] 40.0-44.9, adult Medications: New atorvastatin (Lipitor) 20 mg PO BEDTIME 30 tabs 3RF 30 days R74.01 - Elevation of levels of liver transaminase levels
--- OUTSIDE RECORDS SUMMARY | 2025-04-29 14:32 | XMS_ITS | Clinical Summary ---
Author Organization [facility] Address [address] [facility] [address] [place] [address] Phone Care Team Providers Care Embossed Or Impressed Lettering Painter Name Role Phone Jacek Bonilla THEATRE MANAGER Primary Care Provider +1- [phone] Allergies No known active allergies Medications metroNIDAZOLE [...] Care Team Description 04/24/2025 8:40 AM EDT - 04/24/2025 11:59 PM EDT Hospital Encounter [facility] [address] [place] [address] [place] [address] Ken Garces MD Discharge Disposition: Home or Self Care 04/24/2025 8:00 AM EDT Office Visit [facility] [address] [place] [address] [place] [address] Ken Garces MD Encounter for annual routine [...] 04/06/2022, 08/13/2021, Additional history exists COVID-19 VACCINE (2024- season) 2025 05/13/2023, 05/13/2023, 08/13/2021, Additional history [...] this topic Medical Devices Not on file Procedures Procedure Name Priority Date/Time Associated Diagnosis Comments TSH WITH REFLEX Routine 04/24/2025 8:42 AM EDT Thinning hair from Last 3 Months Results * TSH with reflex (04/24/2025 8:42 AM EDT) TSH 2.10 0.27 - 4.20 uIU/mL [facility] Blood 04/24/2025 8:42 AM EDT 04/24/2025 8:46 AM EDT Ken Garces MD LAB BLOOD ORDERABLES Final Re sult [facility] [address] [place] [address] from Last [address] [address] [place] [address] [employer] [place] [address] [place] [address] [place] [address] [address] [place] [address] [place] [address] [place] [address] ACO Care Teams Embossed Or Impressed Lettering Painter Relationship Specialty Start Date End Date Jacek Bonilla NP [address] [place] [address] PCP - General Nurse Practitioner 04/24/25 Additional Source Comments The information contained in this document represents components of the legal health record. It is not the complete legal health record.[facility]
== END 2025-04-29 11:19 | disposition home or self-care (01) ==
LOC: HO.HMCFM 10:56
PROVIDERS: PCP Nurse Practitioner Family; Visit Provider Nurse Practitioner Family
DX: E78.5 Hyperlipidemia, unspecified (principal); E66.01 Morbid (severe) obesity due to excess calories; Z68.41 Body mass index [BMI] 40.0-44.9, adult

== ENCOUNTER 2025-06-08 12:09 | Outpatient (REF) | payer OTHER, SELFPAY ==
--- OUTSIDE RECORDS SUMMARY | 2025-06-08 12:12 | XMS_ITS | Clinical Summary ---
Author Organization [facility] Address [address] [facility] [address] [place], [place] [address] Phone Care Team Providers Care Drop Wire Operator Name Role Phone Jacek Bonilla TOOL MAINTENANCE TECHNICIAN Primary Care Provider [phone]- [phone] Allergies No known active allergies Medications metroNIDAZOLE [...] Encounters Date Type Department Care Team Description 05/02/2025 Transcribe Orders [facility] [address] [place] [address] Marvin Kennedy MD 04/24/2025 8:40 AM EDT - 04/24/2025 11:59 PM EDT Hospital Encounter [facility] [address] [place] [address] Ken Garces MD Discharge Disposition: Home or Self Care 04/24/2025 8:00 AM EDT Office Visit [facility] [address] [place] [address] Ken Garces MD Encounter for annual routine [...] 1997 HIV ONE-TIME SCREENING (18-65 YEARS) 1997 SCREENING FOR DIABETES 2014 MAMMOGRAM 2019 COLOGUARD 2024 COLONOSCOPY 2024 COLORECTAL CANCER SCREENING 2024 FIT TEST 2024 FOBT 2024 SIGMOIDOSCOPY 2024 VIRTUAL COLONOSCOPY 2024 INFLUENZA VACCINE (#1) 2025 , 04/06/2022, 08/13/2021, Additional history exists COVID-19 VACCINE ( season) 2025 05/13/2023, 05/13/2023, 08/13/2021, Additional history exists PAP SMEAR 04/24/2028 04/24/2025 Adult Td,Tdap Booster 10/31/2034 10/31/2024 SMOKING STATUS [...] Routine 04/24/2025 8:42 AM EDT Thinning hair PAP TEST Routine 04/24/2025 12:00 AM EDT from Last 3 Months Results * TSH with reflex (04/24/2025 8:42 AM EDT) TSH 2.10 0.27 - 4.20 uIU/mL [facility] Blood 04/24/2025 8:42 AM EDT 04/24/2025 8:46 AM EDT Ken Garces MD LAB BLOOD ORDERABLES Final Re sult Performing Organization Address City/State/[facility] Co de Phone Number [address] [address] * Pap Test (04/24/2025 12:00 AM EDT) Report [address] [address] Retail Loan Officer: Dread Jean Baptiste MD PROM BURN OFF OPERATOR Cytology Report FINAL DIAGNOSIS A. PAP SMEAR (THIN PREP) CE: SPECIMEN ADEQUACY: Satisfactory for evaluation; transformation zone present. INTERPRETATION: NEGATIVE FOR INTRAEPITHELIAL LESION OR MALIGNANCY. This specimen was analyzed by the automated ThinPrep Imaging System ([employer] and the selected estevez were reviewed by a tire bladder maker. Electronically Signed Out By: Dread Jean Baptiste MD By his/her signature above, the pathologist listed as making the Final Diagnosis certifies that he/she has personally reviewed this case and confirmed or corrected the diagnosis. The Pap test is a screening test primarily for squamous cancers and precursors and has associated false-negative and false-positive results. New technologies such as liquid-based preparations may decrease but will not eliminate all false-negative results. Regular sampling and follow-up of unexplained clinical signs and symptoms are recommended to minimize false negative results. PROCEDURES/ADDENDA HPV Testing (Requested) Ordered Date: 04/25/2025 A. PAP SMEAR (THIN PREP) CE: High-risk HPV Panel w/ extended genotyping NEG HPV 16-NEG HPV 18-NEG HPV 45-NEG HPV 33/58-NEG HPV 31-NEG HPV 56/59/66-NEG HPV 51-NEG HPV 52-NEG HPV 35/39/68-NEG Performed by real-time polymerase chain reaction (PCR) at [facility], [address] [place] [address] using the FDA-approved [employer] Onclarity HPV Assay with extended genotyping. Uses of the assay in scenarios other than those approved by the FDA should be considered off-label use. The accuracy and precision of this test for all other off-label specimen sources has been verified in the Cytopathology Laboratory of the [facility] and has not been cleared or approved by the U.S. Food and Drug Administration. Clinical correlation is advised. The assay assesses the E6/E7 DNA target and utilizes human beta globin as an internal control. Cytology and HPV testing are screening assays and should not be used as the sole means of detecting cancer. False-positives and false-negatives can occur. CLINICAL HISTORY Date of Last Menstrual Period: 03-25-2025 Other Clinical Conditions: Screening Pap Abnormal PAP at Other Lab SPECIMEN SOURCE A: PAP SMEAR (THIN PREP) CE Patient Name: MEL HOGUE : 1980 (Age: 44) Sex: F Institution: [facility] Location: [facility] Date of Collection: 04/24/2025 Date of Reported: 05/01/2025 17:21 Results to: Ken Garces MD, BS [facility] Final Diagnosis A. PAP SMEAR (THIN PREP) CE: SPECIMEN ADEQUACY: Satisfactory for evaluation; transformation zone present. INTERPRETATION: NEGATIVE FOR INTRAEPITHELIAL LESION OR MALIGNANCY. This specimen was analyzed by the automated ThinPrep Imaging System ([employer] and the selected estevez were reviewed by a tire bladder maker. [facility] Results\Inter pretation A. PAP SMEAR (THIN PREP) CE: High-risk HPV Panel w/ extended genotyping NEG HPV 16-NEG HPV 18-NEG HPV 45-NEG HPV 33/58-NEG HPV 31-NEG HPV 56/59/66-NEG HPV 51-NEG HPV 52-NEG HPV 35/39/68-NEG Performed by real-time polymerase chain reaction (PCR) at [facility], [address] [place] [address] using the FDA-approved Inf[employer]ox Onclarity HPV Assay with extended genotyping. Uses of the assay in scenarios other than those approved by the FDA should be considered off-label use. The accuracy and precision of this test for all other off-label specimen sources has been verified in the Cytopathology Laboratory of the [facility] and has not been cleared or approved by the U.S. Food and Drug Administration. Clinical correlation is advised. The assay assesses the E6/E7 DNA target and utilizes human beta globin as an internal control. Cytology and HPV testing are screening assays and should not be used as the sole means of detecting cancer. False-positives and false-negatives can occur. [facility] Conversion Type 04/24/2025 9:40 AM EDT us Ken Garces MD CYTOLOGY ORDERABLES Edited Re sult - Final [facility] [address] [place] [address] from Last 3 Months Insurance [facility] ACO [place] [address] [place] [address] [place] [address] [place] [address] ACO Care Teams Drop Wire Operator Relationship Specialty Start Date End Date Jacek Bonilla NP [address] [place] [address] PCP - General Nurse Practitioner 04/24/25 Additional Source Comments The information contained in this document represents components of the legal health record. It is not the complete legal health record.[facility]
[2025-06-08 14:35] LABS: Cholesterol 210 mg/dL (<200); HDL Cholesterol 52 mg/dL (>40); Triglycerides 228 mg/dL (<150)
== END 2025-06-08 12:10 | disposition home or self-care (01) ==
LOC: HO.HMGCLDS 12:09
PROVIDERS: PCP Nurse Practitioner Family; Visit Provider Nurse Practitioner Family
DX: E78.5 Hyperlipidemia, unspecified (principal)
CPT/HCPCS: 36415; 80061

== ENCOUNTER 2025-06-10 13:10 | Outpatient (AMB) | payer OTHER, SELFPAY ==
--- NOTE | 2025-06-10 13:08 | A.OFFPC_ITS ---
Intake Visit Reasons: Tele 6 wks, HLD Intake Note: patient here for 6wks follow up on HLD Athletic Coordinator Required: No Is last menstrual period known: Yes Last menstrual period: 05/20/25 Post menopausal: No Patient : No Allergies Seasonal Allergies Allergy (Verified 06/10/25 13:09) Itching Tobacco use date assessed: 06/10/25 Dental Screening Dental Screen Date: 06/10/25 Did you have a dental visit in the last 12 months?: No Did you have a dental problem in the last 6 months where you did not have access to dental care?: No Was dental information given to patient?: Patient has dentist HPI HPI Comments History of Present Illness Details 44-year-old female presents for a [facility] visit for review of recent lab results. She admits to taking atorvastatin as prescribed without adverse reactions. However, she misses a few dose every now and then. She notes that she has been making healthy lifestyle changes. She offers no complaints and denies acute symptoms at this time. [facility] Medical History (Updated 05/15/25 @ 11:51 by Judi Arias MD) Fibroadenoma of breast Morbid obesity Left breast mass Surgical History H/O tubal ligation History of cholecystectomy Family History Mother High blood pressure High cholesterol Diabetes Thyroid disorder Thyroid cancer Father High blood pressure High cholesterol Diabetes Social History Household Members: Spouse Housing: House Patient Tobacco Use Status: Never used Tobacco e-Cigarette/Vaping Use: Never Used Second Hand Smoke Exposure: No Patient : No service: No Current occupational status: employed 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 Current occupational exposures/hazards: No Cognitive needs: No Hearing needs: No Vision needs: No Female Reproductive History Menstrual Date of last menstrual period: 05/20/25 Questionnaire Thrive Questionnaire Date Thrive assessed: 11/26/24 I am a: Patient What is your living situation today?: I have a steady place to live Within the past 12 months, did the food you bought not last and you didn't have the money to get more?: I choose not to answer this question Within the past 12 months, did you worry whether your food would run out before you got money to buy more?: I choose not to answer this question Do you have trouble paying for medicines?: I choose not to answer this question Do you have trouble getting transportation to medical appointments?: I choose not to answer this question Do you have trouble paying your heating and electricity bill?: I choose not to answer this question Do you have trouble taking care of your child, family member or friend?: I choose not to answer this question Do you have trouble with day-to-day activities such as bathing, preparing meals, shopping, managing finances, etc.?: I choose not to answer this question Are you currently unemployed and looking for a job?: I choose not to answer this question Are you interested in more education?: I choose not to answer this question Please select the resources that you would like help with: None Currently or been in a relationship where the following occur: I choose not to answer THRIVE Score: 0 HEMA-7 AMB Questionnaire HEMA-7 Date HEMA - 7 assessed: 10/31/24 Source: Developed by Drs. Kwesi Zavala, Meredith Celestin, Mikey Magallanes and colleagues, with an educational luna from [place]. Review of Systems Const Details: Denies chills, Denies fatigue, Denies fever(s), Denies headache(s) and Denies weakness Cardiac Denies chest pain, Denies claudication, Denies leg edema, Denies lightheadedness, Denies palpitations, Denies dyspnea, Denies dyspnea on exertion, Denies orthopnea and Denies other (Loss of consciousness) Resp Denies cough, Denies excessive phlegm production, Denies dyspnea, Denies dyspnea on exertion, Denies snoring and Denies wheezing Physical exam (Primary Care) Tobacco/Smoking Status: Tobacco use Status Tobacco use date assessed 06/10/25 06/10/25 13:10 Patient Tobacco Use Status Never used Tobacco 06/10/25 13:10 e-Cigarette/Vaping Use Never Used 06/10/25 13:10 Thrive Assessment: Date of Thrive Assessment Date Thrive assessed 11/26/24 06/10/25 13:10 Currently or been in a relationship where the following occur: I choose not to answer Const Other: Patient is alert and oriented x3 Telehealth Telehealth Telehealth Platform: Telephone Location of provider rendering services: practice address Location of patient: address on file Patient Identification confirmed using: Name, : Yes Telehealth method: voice only Patient verbally consented to treatment: Yes Patient verbally consented to billing insurance company: Yes Patient informed of any privacy concerns related to visit: Yes Coding Level of Care Code Tele Est Pt Level 3 (56615) Diagnoses Hyperlipidemia E78.5 Time Spent (min) 15 Assessment & Plan Assessment & Plan (1) Hyperlipidemia: Code(s): E78.5 - Hyperlipidemia, unspecified Category: Medical Plan: Recent triglycerides, total cholesterol, and LDL levels are elevated, 228, 210, and 113 respectively, previous levels were 153, 231, and 148 respectively. Will increase atorvastatin to 40 mg daily; advised to take as prescribed. Her was to limit foods high in saturated fat and sent trans fat. Routine exercise encouraged. Fast for 10-12 hours, may drink water, and perform lipid panel blood work a few days before next visit. Follow-up for telehealth visit in 6 weeks. Return sooner with symptoms or concerns. Verbalized understanding and agreed with the plan. Orders: Orders Lipid Panel 6 Weeks E78.5 - Hyperlipidemia, unspecified Medications: New atorvastatin (Lipitor) 40 mg PO BEDTIME 30 tabs 3RF 30 days Discontinued atorvastatin (Lipitor) Discontinued Reason: Doctor's Order 20 mg PO BEDTIME 30 days 30 tabs 3RF R74.01 - Elevation of levels of liver transaminase levels
--- OUTSIDE RECORDS SUMMARY | 2025-06-10 16:48 | XMS_ITS | Clinical Summary ---
Author Organization [facility] Address [address] [facility] [address] [place], [place] [address] Phone Care Team Providers Care Transportation Maintenance Worker Name Role Phone Jacek Bonilla CAFE ASSISTANT Primary Care Provider [phone]- [phone] Allergies No known active allergies Medications metroNIDAZOLE [...] Orders [facility] [address] [place] [address] Marvin Kennedy MD 04/24/2025 8:40 AM EDT - 04/24/2025 11:59 PM EDT Hospital En[facility] [address] [place] [address] Ken Garces MD Discharge Disposition: Home or Self Care 04/24/2025 8:00 AM EDT Office Visit [facility] [address] [place] [address] Ken Garces MD Encounter for annual routine [...] EDT) TSH 2.10 0.27 - 4.20 uIU/mL [facility] Blood 04/24/2025 8:42 AM EDT 04/24/2025 8:46 AM EDT Ken Garces MD LAB BLOOD ORDERABLES Final Re sult Performing Organization Address City/State/[facility] Co de Phone Number [address] [address] * Pap Test (04/24/2025 12:00 AM EDT) Report [address] [address] Entertainment Centre Manager: Dread Jean Baptiste MD LEAD MANUFACTURING ENGINEERING TECH Cytology Report FINAL DIAGNOSIS A. PAP SMEAR (THIN PREP) CE: SPECIMEN ADEQUACY: Satisfactory for evaluation; transformation zone present. INTERPRETATION: NEGATIVE FOR INTRAEPITHELIAL LESION OR MALIGNANCY. This specimen was analyzed by the automated ThinPrep Imaging System ([employer] and the selected estevez were reviewed by a plastic printer. Electronically Signed Out By: Dread Jean Baptiste [...] by real-time polymerase chain reaction (PCR) at [facility], [address] [place] [address] using the FDA-approved [email or web address] Onclarity HPV Assay with extended genotyping. Uses of the assay in scenarios other than those approved by the FDA should be considered off-label use. The accuracy and precision of this test for all other off-label specimen sources has been verified in the Cytopathology Laboratory of the [facility] and has not been cleared or approved [...] : 1980 (Age: 44) Sex: F Institution: [facility] Location: [facility] Date of Collection: 04/24/2025 Date of Reported: 05/01/2025 17:21 Results to: Ken Garces MD, BS [facility] Final Diagnosis A. PAP SMEAR (THIN PREP) CE: SPECIMEN ADEQUACY: Satisfactory for evaluation; transformation zone present. INTERPRETATION: NEGATIVE FOR INTRAEPITHELIAL LESION OR MALIGNANCY. This specimen was analyzed by the automated ThinPrep Imaging System ([employer] and the selected estevez were reviewed by a plastic printer. [facility] Results\Inter pretation A. PAP SMEAR (THIN PREP) CE: High-risk HPV Panel w/ extended genotyping NEG HPV 16-NEG HPV 18-NEG HPV 45-NEG HPV 33/58-NEG HPV 31-NEG HPV 56/59/66-NEG HPV 51-NEG HPV 52-NEG HPV 35/39/68-NEG Performed by real-time polymerase chain reaction (PCR) at [facility], [address] [place] [address] using the FDA-approved [email or web address] Onclarity HPV Assay with extended genotyping. Uses of the assay in scenarios other than those approved by the FDA should be considered off-label use. The accuracy and precision of this test for all other off-label specimen sources has been verified in the Cytopathology Laboratory of the [facility] and has not been cleared or approved by the U.S. Food and Drug Administration. Clinical correlation is advised. The assay assesses the E6/E7 DNA target and utilizes human beta globin as an internal control. Cytology and HPV testing are screening assays and should not be used as the sole means of detecting cancer. False-positives and false-negatives can occur. [facility] Conversion Type 04/24/2025 9:40 AM EDT us Ken Garces MD CYTOLOGY ORDERABLES Edited Re sult - Final [facility] [address] [place] [address] from Last 3 Months Insurance [facility] ACO ACO [place] [address] [place] [address] [place] [address] [place] [address] ACO Care Teams Transportation Maintenance Worker Relationship Specialty Start Date End Date Jacek Bonilla NP [address] [place] [address] PCP - General Nurse Practitioner 04/24/25 Additional Source Comments The information contained in this document represents components of the legal health record. It is not the complete legal health record.[facility]
== END 2025-06-10 14:02 | disposition home or self-care (01) ==
LOC: HO.HMCFM 13:11
PROVIDERS: PCP Nurse Practitioner Family; Visit Provider Nurse Practitioner Family
DX: E78.5 Hyperlipidemia, unspecified (principal)

== ENCOUNTER 2025-06-26 09:24 | Outpatient (AMB) | payer OTHER, SELFPAY ==
--- NOTE | 2025-06-26 09:35 | MHC.AMNUTRGE ---
VS Expanded 06/26/25 09:37 Height 5 ft 2 in Weight 222 lb 14.197 oz BMI 40.8 Intake Visit Reasons: Morbid (severe) obesity due to excess calories Allergies Seasonal Allergies Allergy (Verified 06/10/25 13:09) Itching Nutrition Presentation Details: Patient presents for MNT for obesity and hyperlipidemia Patient reports gradually working on diet modifications, this consists challenges due to multiple diet preference is and dislikes within the family, and it child who may have ARFID, food frequency fish : 0-1 wk fruits: not including dairy: reports not including Vegetables 3 times a week Physical activity: Daily life activities Beverages, water, tea, low sugar beverages BS Monitoring Most Recent Diabetes Results: Cholesterol, (<200) 210 mg/dL H 06/08/25 HDL Cholesterol, (>40) 52 mg/dL 06/08/25 Triglycerides, (<150) 228 mg/dL H 06/08/25 ZAN-Mywkslr-Na.Jeor Equation Height: 5 ft 2 in Weight: 223 lb Resting Metabolic Rate: 1612.35 Calculated Activity Level: Sedentary Calories Needed to Maintain Weight: 1934.82 Diagnosis Nutrition problem #1: altered nutrition labs As related to (etiology) #1: diagnosis As evidenced by (sign/symptom) #1: abnormal serum lipids [facility] Medical History (Updated 06/26/25 @ 09:[address], LDN) Fibroadenoma of breast Left breast mass Surgical History H/O tubal ligation History of cholecystectomy Family History Mother High blood pressure High cholesterol Diabetes Thyroid disorder Thyroid cancer Father High blood pressure High cholesterol Diabetes Social History Household Members: Spouse Housing: House Patient Tobacco Use Status: Never used Tobacco e-Cigarette/Vaping Use: Never Used Second Hand Smoke Exposure: No service: No Current occupational status: employed 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 Current occupational exposures/hazards: No Cognitive needs: No Hearing needs: No Vision needs: No Assessment & Plan Assessment & Plan (1) Morbid obesity with BMI of 40.0-44.9, adult: Code(s): E66.01 - Morbid (severe) obesity due to excess calories; Z68.41 - Body mass index [BMI] 40.0-44.9, adult Category: Medical Plan: current wt: 101 kg ( 07/09 ) est kcal needs as per MSJ: 2000 est protein needs as per 1 g/kg BW: 100 est fluid needs as per 30 ml/kg BW: 3000 Recommended fiber > 12 g /day and gradually increase up to 25-28 g /day or as tolerated Nutrition topics discussed : Reviewed (R), Pt verbalized understanding (V) , not applicable (N/A) R, : Healthy Plate Method Concept: R, A: Carbohydrates: food sources of carbohydrates, relationship of carbohydrates to blood glucose, fatty liver GI health. Recommended total amount of carbohydrates per meals and snack. Differences between simple carbohydrates and complex carbohydrates . Discussed carbohydrates and is relationship to triglycerides R, V, N/A: Lean protein foods including vegan , vegetarian sources of protein. Benefits of protein (including but not limited to healing, nutritional value , benefits in weight loss, glucose control R, : Fats : Source of fats, benefits of fats. Difference between saturated and unsaturated fats. Saturated fats and its contribution to inflammation R, V, N/A: Fiber: food sources and role of fiber in the diet (including but not limited to its role as a prebiotic, benefits in constipation, role in IBS , role in glucose control and cholesterol level) R, : Hydration: role of hydration and prevention of dehydration or over hydration. Foods and water content. R, V, N/A: Vitamins and Minerals in foods and supplements R, V, N/A: Interpreting food labels, including serving size, macronutrients, vitamins, minerals, allergens, ingredient list , % daily value Patient Instructions: Include fish at least twice a week, consider having a tuna fish sandwich , lightly on oil on whole wheat bread with spinach lettuce and tomato and cup of low-fat milk Gradually work on reducing on sugars and amount of carbohydrates consumed, choose complex carbohydrate See meal ideas consisting of less than 60 g of carbs per meal Coding Level of Care Code Nutr Indiv Intake (77857) Diagnoses Morbid obesity with BMI of 40.0-44.9, adult E66.01; Z68.41 Time Spent (min) 30
[2025-06-26 09:37] VITALS: BMI 40.8
--- OUTSIDE RECORDS SUMMARY | 2025-06-26 10:21 | XMS_ITS | Clinical Summary ---
Author Organization [facility] Address [address] [address] Phone Care Team Providers Care Compensation Intern Name Role Phone Jacek Bonilla HOSPITAL UNIT CLERK Primary Care Provider +1- [phone] Allergies No known active allergies Medications metroNIDAZOLE [...] Transcribe Orders [facility] [address] [place] [address] [place] [address] Marvin Kennedy MD 04/24/2025 8:40 AM EDT - 04/24/2025 11:59 PM EDT Hospital Encounter [facility] [address] [place] [address] Ken Garces MD Discharge Disposition: Home or Self Care 04/24/2025 8:00 AM EDT Office Visit [facility] [address] [place] [address] [place] [address] Ken Garces MD Encounter for annual routine [...] on patient's age to complete this topic IPV VACCINES Aged Out No longer eligi ble [...] EDT) TSH 2.10 0.27 - 4.20 uIU/mL [facility] Blood 04/24/2025 8:42 AM EDT 04/24/2025 8:46 AM EDT Ken Garces MD LAB BLOOD BKR ORDERABLES Rhea l Result [address] [address] * Pap Test (04/24/2025 12:00 AM EDT) Report [address] [address] Medical Insurance Claims Specialist: Dread Jean Baptiste MD FOREST OFFICER Cytology Report FINAL DIAGNOSIS A. PAP SMEAR (THIN PREP) CE: SPECIMEN ADEQUACY: Satisfactory for evaluation; transformation zone present. INTERPRETATION: NEGATIVE FOR INTRAEPITHELIAL LESION OR MALIGNANCY. This specimen was analyzed by the automated ThinPrep Imaging System ([employer].) and the selected esteevz were reviewed by a cookee. Electronically Signed Out By: Dread Jean Baptiste [...] by real-time polymerase chain reaction (PCR) at [address] using the FDA-approved [employer] Onclarity HPV Assay with extended genotyping. Uses of the assay in scenarios other than those approved by the FDA should be considered off-label use. The accuracy and precision of this test for all other off-label specimen sources has been verified in the Cytopathology Laboratory of the [facility] and has not been cleared or [...] 1980 (Age: 44) Sex: F Institution: [facility] Location: [facility] Date of Collection: 04/24/2025 Date of Reported: 05/01/2025 17:21 Results to: Ken Garces MD, BS [facility] Final Diagnosis A. PAP SMEAR (THIN PREP) CE: SPECIMEN ADEQUACY: Satisfactory for evaluation; transformation zone present. INTERPRETATION: NEGATIVE FOR INTRAEPITHELIAL LESION OR MALIGNANCY. This specimen was analyzed by the automated ThinPrep Imaging System ([employer].) and the selected estevez were reviewed by a cookee. [facility] Results\Inter pretation A. PAP SMEAR (THIN PREP) CE: High-risk HPV Panel w/ extended genotyping NEG HPV 16-NEG HPV 18-NEG HPV 45-NEG HPV 33/58-NEG HPV 31-NEG HPV 56/59/66-NEG HPV 51-NEG HPV 52-NEG HPV 35/39/68-NEG Performed by real-time polymerase chain reaction (PCR) at [facility], [address] [place] [address] using the FDA-approved [employer] Onclarity HPV Assay with extended genotyping. Uses of the assay in scenarios other than those approved by the FDA should be considered off-label use. The accuracy and precision of this test for all other off-label specimen sources has been verified in the Cytopathology Laboratory of the [facility] and has not been cleared or approved by the U.S. Food and Drug Administration. Clinical correlation is advised. The assay assesses the E6/E7 DNA target and utilizes human beta globin as an internal control. Cytology and HPV testing are screening assays and should not be used as the sole means of detecting cancer. False-positives and false-negatives can occur. [facility] Conversion Type (Conversion Source) 04/24/2025 04/25/2025 9:40 AM EDT us Ken Garces MD CYTOLOGY ORDERABLES Edited Re sult - Final [facility] [address] [place] [address] from Last [address] [place] [address] [place] [address] [place] [address] [place] [address] [facility] [facility] ACO [facility] ACO [facility] ACO Care Teams Compensation Intern Relationship Specialty Start Date End Date Jacek Bonilla NP [address] [place] [address] PCP - General Nurse Practitioner 04/24/25 Additional Source Comments The information contained in this document represents components of the legal health record. It is not the complete legal health record.[facility]
[2025-07-01 12:58] VITALS: BMI 40.8
== END 2025-06-26 11:17 | disposition home or self-care (01) ==
LOC: HO.ENCR 09:25
PROVIDERS: PCP Nurse Practitioner Family; Visit Provider Dietitian, Registered
DX: E66.01 Morbid (severe) obesity due to excess calories (principal); Z68.41 Body mass index [BMI] 40.0-44.9, adult

== ENCOUNTER → 2025-06-26 09:24 | Outpatient (BNVA) | payer OTHER, SELFPAY | PROVIDERS: PCP Nurse Practitioner Family; Visit Provider Dietitian, Registered | DX: E66.01 Morbid (severe) obesity due to excess calories (principal); Z68.41 Body mass index [BMI] 40.0-44.9, adult; Z71.3 Dietary counseling and surveillance | CPT/HCPCS: 97802 ==

== ENCOUNTER 2025-07-22 12:17 | Outpatient (REF) | payer OTHER, SELFPAY ==
[2025-07-22 16:42] LABS: Cholesterol 226 mg/dL (<200); HDL Cholesterol 59 mg/dL (>40); Triglycerides 124 mg/dL (<150)
--- OUTSIDE RECORDS SUMMARY | 2025-07-22 20:21 | XMS_ITS | Clinical Summary ---
Author Organization [facility] Address [address] [address] Phone Care Team Providers Care Airport Engineer Name Role Phone Jacek Bonilla CUSTODIAN Primary Care Provider +1- [phone] Allergies No known active allergies Medications metroNIDAZOLE [...] Transcribe Orders [facility] [address] [place] [address] [place] [address] Marvin Kennedy MD 04/24/2025 8:40 AM EDT - 04/24/2025 11:59 PM EDT Hospital Encounter [facility] [address] [place] [address] Ken Garces MD Discharge Disposition: Home or Self Care 04/24/2025 8:00 AM EDT Office Visit [facility] [address] [place] [address] [place] [address] Ken Garces MD Encounter for annual routine [...] EDT) TSH 2.10 0.27 - 4.20 uIU/mL [facility] Blood 04/24/2025 8:42 AM EDT 04/24/2025 8:46 AM EDT Ken Garces MD LAB BLOOD BKR ORDERABLES Rhea l Result [address] [address] * Pap Test (04/24/2025 12:00 AM EDT) Report [address] [address] Broadcast Checker: Draed Jean Baptiste MD JEWELRY DRILLING MACHINE OPERATOR Cytology Report FINAL DIAGNOSIS A. PAP SMEAR (THIN PREP) CE: SPECIMEN ADEQUACY: Satisfactory for evaluation; transformation zone present. INTERPRETATION: NEGATIVE FOR INTRAEPITHELIAL LESION OR MALIGNANCY. This specimen was analyzed by the automated ThinPrep Imaging System ([employer] and the selected estevez were reviewed by a faculty head. Electronically Signed Out By: Dread Jean Baptiste [...] by real-time polymerase chain reaction (PCR) at [facility], [address] [place] [address] using the FDA-approved [employer] Onclarity HPV Assay with extended genotyping. Uses of the assay in scenarios other than those approved by the FDA should be considered off-label use. The accuracy and precision of this test for all other off-label specimen sources has been verified in the Cytopathology Laboratory of the [facility] and has not been cleared or [...] : 1980 (Age: 44) Sex: F Institution: [facility] Location: [facility] Date of Collection: 04/24/2025 Date of Reported: 05/01/2025 17:21 Results to: Ken Garces MD, BS [facility] Final Diagnosis A. PAP SMEAR (THIN PREP) CE: SPECIMEN ADEQUACY: Satisfactory for evaluation; transformation zone present. INTERPRETATION: NEGATIVE FOR INTRAEPITHELIAL LESION OR MALIGNANCY. This specimen was analyzed by the automated ThinPrep Imaging System ([employer].) and the selected estevez were reviewed by a faculty head. [facility] Results\Inter pretation A. PAP SMEAR (THIN PREP) CE: High-risk HPV Panel w/ extended genotyping NEG HPV 16-NEG HPV 18-NEG HPV 45-NEG HPV 33/58-NEG HPV 31-NEG HPV 56/59/66-NEG HPV 51-NEG HPV 52-NEG HPV 35/39/68-NEG Performed by real-time polymerase chain reaction (PCR) at [facility], [address] [place] [address] using the FDA-approved [employer] Onclarity HPV Assay with extended genotyping. Uses of the assay in scenarios other than those approved by the FDA should be considered off-label use. The accuracy and precision of this test for all other off-label specimen sources has been verified in the Cytopathology Laboratory of the [facility] and has not been cleared or approved by the U.S. Food and Drug Administration. Clinical correlation is advised. The assay assesses the E6/E7 DNA target and utilizes human beta globin as an internal control. Cytology and HPV testing are screening assays and should not be used as the sole means of detecting cancer. False-positives and false-negatives can occur. [facility] Conversion Type (Conversion Source) 04/24/2025 04/25/2025 9:40 AM EDT us Ken Garces MD CYTOLOGY ORDERABLES Edited Re sult - Final [facility] [address] [place] [address] from Last 3 Months Insurance ACO ACO ACO ACO [facility] ACO [facility] ACO Care Teams Airport Engineer Relationship Specialty Start Date End Date Jacek Bonilla NP [address] [place] [address] PCP - General Nurse Practitioner 04/24/25 Additional Source Comments The information contained in this document represents components of the legal health record. It is not the complete legal health record.[facility]
== END 2025-07-22 12:18 | disposition home or self-care (01) ==
LOC: HO.HMGCLDS 12:17
PROVIDERS: PCP Nurse Practitioner Family; Visit Provider Nurse Practitioner Family
DX: E78.5 Hyperlipidemia, unspecified (principal)
CPT/HCPCS: 36415; 80061

== ENCOUNTER 2025-07-26 12:16 | Outpatient (AMB) | payer OTHER, SELFPAY ==
--- NOTE | 2025-07-26 12:10 | MHC.PC.OV ---
Intake Visit Reasons: Labs / Referral for Neurology Intake Note: patient here for follow up on labs and would like a referral to Neurology Tube Sorter Required: No Is last menstrual period known: Yes Last menstrual period: 06/24/25 Post menopausal: No Patient : No Allergies Seasonal Allergies Allergy (Verified 07/26/25 12:12) Itching Tobacco use date assessed: 07/26/25 Dental Screening Dental Screen Date: 07/26/25 Did you have a dental visit in the last 12 months?: Yes Did you have a dental problem in the last 6 months where you did not have access to dental care?: No Was dental information given to patient?: Patient has dentist HPI HPI Comments History of Present Illness Details 45-year-old female presents for hyperlipidemia follow-up. She admits to taking atorvastatin as prescribed without adverse reactions. 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 Requests neurology referral for atraumatic back and leg pain which started a month ago. 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 Kwesi Zavala, Meredith Celestin, Mikey Magallanes and colleagues, with an educational luna from [employer]. Review of Systems Const Details: Denies chills, Denies fatigue, Denies fever(s), Denies headache(s) and Denies weakness Cardiac Denies chest pain, Denies claudication, Denies leg edema, Denies lightheadedness, Denies palpitations, Denies dyspnea, Denies dyspnea on exertion, Denies orthopnea and Denies other (Loss of consciousness) Resp Denies cough, Denies excessive phlegm production, Denies dyspnea, Denies dyspnea on exertion, Denies snoring and Denies wheezing Musc Reports as per HPI Physical exam (Primary Care) Tobacco/Smoking Status: Tobacco use Status Tobacco use date assessed 07/26/25 07/26/25 12:12 Patient Tobacco Use Status Never used Tobacco 07/26/25 12:12 e-Cigarette/Vaping Use Never Used 07/26/25 12:12 Thrive Assessment: Date of Thrive Assessment Date Thrive assessed 11/26/24 07/26/25 12:12 Const Other: Patient is alert and oriented x4 Telehealth Telehealth Telehealth Platform: Telephone Location of provider rendering services: practice address Location of patient: address on file Patient Identification confirmed using: Name, : Yes Telehealth method: voice only Patient verbally consented to treatment: Yes Patient verbally consented to billing insurance company: Yes Patient informed of any privacy concerns related to visit: Yes Coding Level of Care Code Tele Est Pt Level 3 (96459) Diagnoses Hyperlipidemia E78.5 Back pain M54.9 Leg pain M79.606 Time Spent (min) 20 Assessment & Plan Assessment & Plan (1) Hyperlipidemia: Code(s): E78.5 - Hyperlipidemia, unspecified Category: Medical Plan: Recent total cholesterol and LDL levels are elevated, 226 and 143 respectively, previous levels were 210 and 113 respectively. Recent triglycerides and HDL levels are normal. 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 Advised to limit foods high in saturated fat and avoid foods high in trans fat. Routine exercise encouraged. Fast for 10-12 hours, may drink water, and perform lipid panel blood work a few days before next visit. Follow-up with PCP as planned. Verbalized understanding and agreed with the plan. (2) Back pain: Code(s): M54.9 - Dorsalgia, unspecified Category: Medical Plan: Requests neurology referral for atraumatic back and leg pain which started a month ago. Encouraged to follow-up in office for an evaluation and appropriate treatment. (3) Leg pain: Code(s): M79.606 - Pain in leg, unspecified Category: Medical Plan: Plan as above. Orders: Orders Lipid Panel 2 Months E78.5 - Hyperlipidemia, unspecified Medications: Refilled atorvastatin (Lipitor) 40 mg PO BEDTIME 30 tabs 3RF 30 days
--- OUTSIDE RECORDS SUMMARY | 2025-07-26 17:49 | XMS_ITS | Clinical Summary ---
Author Organization [facility] Address [address] [facility] [address] [place], [place] [id number] Phone Care Team Providers Care Service Order Expediter Name Role Phone Jacek Bonilla OCCUPATIONAL THERAPIST ASSISTANT Primary Care Provider +1- [phone] Allergies No known active allergies Medications metroNIDAZOLE [...] Transcribe Orders [facility] [address] [place] [address] [place] [address] Marvin Kennedy MD from Last 3 Months Family History Medical [...] Procedure Name Priority Date/Time Associated Diagnosis Comments PAP TEST Routine 04/24/2025 12:00 AM EDT from Last 3 Months or Most Recently Relevant to Health Maintenance Results * Pap Test (04/24/2025 12:00 AM EDT) Report [address] [address] Telephone Quotation Clerk: Dread Jean Baptiste MD PROCUREMENT SERVICES MANAGER Cytology Report FINAL DIAGNOSIS A. PAP SMEAR (THIN PREP) CE: SPECIMEN ADEQUACY: Satisfactory for evaluation; transformation zone present. INTERPRETATION: NEGATIVE FOR INTRAEPITHELIAL LESION OR MALIGNANCY. This specimen was analyzed by the automated ThinPrep Imaging System ([employer].) and the selected estevez were reviewed by a talent sourcing specialist. Electronically Signed Out By: Dread Jean Baptiste [...] by real-time polymerase chain reaction (PCR) at [facility], [address] [place] [address] using the FDA-approved [employer] Onclarity HPV Assay with extended genotyping. Uses of the assay in scenarios other than those approved by the FDA should be considered off-label use. The accuracy and precision of this test for all other off-label specimen sources has been verified in the Cytopathology Laboratory of the [facility] and has not been cleared or [...] : 1980 (Age: 44) Sex: F Institution: [facility] Location: [facility] Date of Collection: 04/24/2025 Date of Reported: 05/01/2025 17:21 Results to: Ken Garces MD, BS [facility] Final Diagnosis A. PAP SMEAR (THIN PREP) CE: SPECIMEN ADEQUACY: Satisfactory for evaluation; transformation zone present. INTERPRETATION: NEGATIVE FOR INTRAEPITHELIAL LESION OR MALIGNANCY. This specimen was analyzed by the automated ThinPrep Imaging System ([employer].) and the selected estevez were reviewed by a talent sourcing specialist. [facility] Results\Inter pretation A. PAP SMEAR (THIN PREP) CE: High-risk HPV Panel w/ extended genotyping NEG HPV 16-NEG HPV 18-NEG HPV 45-NEG HPV 33/58-NEG HPV 31-NEG HPV 56/59/66-NEG HPV 51-NEG HPV 52-NEG HPV 35/39/68-NEG Performed by real-time polymerase chain reaction (PCR) at [address] using the FDA-approved [employer] Onclarity HPV Assay with extended genotyping. Uses of the assay in scenarios other than those approved by the FDA should be considered off-label use. The accuracy and precision of this test for all other off-label specimen sources has been verified in the Cytopathology Laboratory of the [facility] and has not been cleared or approved by the U.S. Food and Drug Administration. Clinical correlation is advised. The assay assesses the E6/E7 DNA target and utilizes human beta globin as an internal control. Cytology and HPV testing are screening assays and should not be used as the sole means of detecting cancer. False-positives and false-negatives can occur. [facility] Conversion Type (Conversion Source) 04/24/2025 04/25/2025 9:40 AM EDT us Ken Garces MD CYTOLOGY ORDERABLES Edited Re sult - Final [facility] [address] [place] [address] from Last 3 Months or Most Recently Relevant to Health Maintenance Insurance ACO [place] [address] [place] [address] [place] [address] [place] [address] [place] [place] [address] [place] [id number] Care Teams Service Order Expediter Relationship Specialty Start Date End Date Jacek Bonilla NP [address] [place] [address] PCP - General Nurse Practitioner 04/24/25 Additional Source Comments The information contained in this document represents components of the legal health record. It is not the complete legal health record.[facility]
== END 2025-07-26 14:35 | disposition home or self-care (01) ==
LOC: HO.HMCFM 12:17
PROVIDERS: PCP Nurse Practitioner Family; Visit Provider Nurse Practitioner Family
DX: E78.5 Hyperlipidemia, unspecified (principal); M54.9 Dorsalgia, unspecified; M79.606 Pain in leg, unspecified